=== PATIENT | female | born 1955 | race Two or more races ===

== ENCOUNTER 2016-12-11 13:02 | Inpatient (IN) | payer MEDICARE, OTHER ==
[~2016-12-11] VITALS: Ht 160 cm; Wt 60.8 kg
[2016-12-11 16:40] VITALS: BP 154/101
[2016-12-11] MEDS ORDERED: oxyCONTIN 10mg tab ORAL PRN (18:15)
[2016-12-11] MEDS ORDERED: Prochlorperazine 10mg tab ORAL PRN (18:30)
[2016-12-11 20:00] VITALS: BP 126/72
[2016-12-11] MEDS: NovoLOG Insulin Flexpen SUBQ SCH (21:00)
[2016-12-11] MEDS: Heparin 5000 units/ml inj SUBQ SCH (22:00)
[2016-12-11] MEDS: DuoNeb 0.5-3(2.5)mg/3ml neb HHN SCH (22:13)
[2016-12-11] MEDS ORDERED: oxyCODONE 15mg IR tab ORAL PRN (22:15)
[2016-12-11] MEDS ORDERED: Morphine Sulfate 4mg/ml Inj IVP PRN (22:15)
[2016-12-11] MEDS: Morphine Sulfate 2mg/ml Inj IVP PRN (22:30)
[2016-12-11] MEDS ORDERED: Vancomycin 1 GM in NS 275 ML IVPB ONE (23:00)
[2016-12-12] VITALS (7 sets, daily range): BP systolic 122–140; BP diastolic 56–74
[2016-12-12] MEDS ORDERED: NORCO 10-325 T1 EACH ORAL
[2016-12-12] MEDS ORDERED: Piperacillin/Tazobactam 3.375 GM in D5W 110 ML IVPB SCH ×2
[2016-12-12] MEDS ORDERED: METFORMIN HCL5000 GM MC (00:06)
[2016-12-12] MEDS ORDERED: DEXAMETHASONE4 M1 PO (00:07)
[2016-12-12] MEDS ORDERED: RESTORIL15 MG ORAL (00:08)
[2016-12-12] MEDS ORDERED: OXYCODONE HCL5 MG ORAL (00:08)
[2016-12-12] MEDS ORDERED: OYSTER SHELL 51 EAC1 PO (00:09)
[2016-12-12] MEDS ORDERED: FUROSEMIDE20 M1 ORAL (00:10)
[2016-12-12] MEDS ORDERED: SIMVASTATIN20 MG ORAL (00:10)
[2016-12-12] MEDS ORDERED: LYRICA75 M1 ORAL (00:11)
[2016-12-12] MEDS ORDERED: COMPAZINE10 MG ORAL (00:11)
[2016-12-12] MEDS ORDERED: NEXIUM40 MG ORAL (00:12)
[2016-12-12] MEDS ORDERED: BENADRYL25 MG ORAL (00:13)
[2016-12-12] MEDS ORDERED: MS CONTIN30 MG ORAL (00:13)
[2016-12-12] MEDS: Piperacillin/Tazobactam 3.375 GM in D5W 110 ML IVPB SCH ×3 (02:16→17:30)
[2016-12-12] MEDS: Morphine Sulfate 2mg/ml Inj IVP PRN ×5 (02:25→21:40)
[2016-12-12] MEDS: DuoNeb 0.5-3(2.5)mg/3ml neb HHN SCH ×3 (06:00→23:12)
[2016-12-12] MEDS: Heparin 5000 units/ml inj SUBQ SCH ×3 (06:04→21:42)
[2016-12-12] MEDS: NovoLOG Insulin Flexpen SUBQ SCH ×4 (06:30→21:43)
[2016-12-12 08:20] LABS: BASOPHILS % (AUTO) 0.7 % (0.0-2.0); EOSINOPHILS % (AUTO) 0.9 % (0.0-3.0); LYMPHOCYTES % (AUTO) 12.9 % (20.0-45.0); MEAN CORPUSCULAR HEMOGLOBIN 23.5 PG (27.0-31.0); MEAN CORPUSCULAR HGB CONC 30.8 G/DL (32.0-36.0); MEAN CORPUSCULAR VOLUME 76 FL (80-99); MEAN PLATELET VOLUME 5.5 FL (6.5-10.1); MONOCYTES % (AUTO) 7.9 % (1.0-10.0); NEUTROPHILS % (AUTO) 77.7 % (45.0-75.0); PLATELET COUNT 334 K/UL (150-450); RED BLOOD COUNT 3.74 M/UL (4.20-5.40); RED CELL DISTRIBUTION WIDTH 18.4 % (11.6-14.8); WHITE BLOOD COUNT 7.3 K/UL (4.8-10.8)
[2016-12-12 08:38] LABS: ANION GAP 15 (5-15); CALCIUM 8.5 mg/dL (8.6-10.2); CARBON DIOXIDE 26 mEQ/L (20-30); CHLORIDE 94 mEQ/L (98-107); CREATININE 0.6 mg/dL (0.5-0.9); GLOMERULAR FILTRATION RATE > 60 mL/min (>60); HEMOLYSIS 0; MAGNESIUM 1.6 mg/dL (1.7-2.5); POTASSIUM 3.2 mEQ/L (3.4-4.9); SODIUM 135 mEQ/L (135-145)
[2016-12-12] MEDS: Carvedilol 6.25mg Tab ORAL SCH ×2 (09:00→17:31)
[2016-12-12] MEDS: MS Contin 15mg tab ORAL SCH ×2 (09:00→21:39)
[2016-12-12] MEDS: chlorproMAZINE 10mg tab ORAL SCH ×3 (09:00→18:00)
[2016-12-12] MEDS: Lyrica 50mg cap ORAL SCH ×3 (09:00→18:00)
[2016-12-12] MEDS ORDERED: metFORMIN 500mg tab ORAL SCH (09:00)
--- NOTE | 2016-12-12 10:48 | Diagnostic Imaging Report ---
Indications: Shortness of breath Technique: Portable AP chest Findings: Comparison: None Patchy consolidation medial right lung base. Linear density lateral left lung base. Suggestion of consolidative opacity left retrocardiac region. Background mild bilateral interstitial prominence. Heart size, pulmonary vasculature within normal limits. Suggestion of small right pleural effusion. Tracheostomy tube, left chest wall Port-A-Cath. Bilateral humeral head sclerosis. IMPRESSION: Pulmonary bibasal subsegmental atelectasis and/or pneumonias Nonspecific bilateral interstitial prominence, may relate to technique. Acute or chronic interstitial infiltrates not excludable Bilateral humeral head sclerosis may be metabolic or neoplastic Lines and tubes in place as described
--- NOTE | 2016-12-12 12:29 | Consultation ---
History of Present Illness General Date patient seen: Dec 12, 2016 Chief Complaint: dyspnea Referring physician: Dr. Sarmiento Reason for Consultation: dyspnea Present Illness HPI 61 year old with hx of metastatic breast cancer, s/p trach a few month ago, on ongoing chemotherapy. was taken by paramedics to [facility] for dyspnea. Pt was diagnosed to have pneumonia, he also had brochoscopy which ruled out any mucus plug. After she became stable, she was transferred [place] [facility] [place]. Pt is currently awake, comfortable, with at the bed side. The help with HPI. Allergies: Coded Allergies: SULFAMETHOXAZOLE (Verified Allergy, Unknown, 12/11/16) TRIMETHOPRIM (Verified Allergy, Unknown, 12/11/16) Medication History Scheduled Calcium Carbonate/Vitamin D3 (Oyster Shell 500 Mg + Vit D Tb), 1 EACH PO BID, ( Reported) Dexamethasone (Dexamethasone), 4 MG PO DAILY, (Reported) Esomeprazole Magnesium (Nexium), 40 MG ORAL DAILY, (Reported) Furosemide* (Lasix*), 20 MG ORAL DAILY, (Reported) Metformin Hcl (Metformin Hcl), 1,000 MG MC BID, (Reported) Morphine Sulfate* (Ms Contin*), 15 MG ORAL BID, (Reported) Pregabalin* (Lyrica*), 100 MG ORAL BID, (Reported) Simvastatin (Zocor), 20 MG ORAL BEDTIME, (Reported) Scheduled PRN Diphenhydramine Hcl* (Benadryl*), 50 MG ORAL Q12HR PRN for Itching, (Reported) Hydrocodone Bit/Acetaminophen 10-325* ([place] 10-325*), 1 TAB ORAL Q6H PRN for For Pain, (Reported) Oxycodone Hcl Ir* (Roxicodone Ir*), 15 MG ORAL Q4H PRN for For Pain, (Reported) Prochlorperazine (Compazine*), 10 MG ORAL TID PRN for Nausea & Vomiting, ( Reported) Temazepam* (Restoril*), 15 MG ORAL BEDTIME PRN for Insomnia, (Reported) Patient History Healthcare decision maker N Resuscitation status Full Code Advanced Directive on File Past Medical/Surgical History Past Medical/Surgical History: (1) Diabetes (2) Metastatic adenocarcinoma Review of Systems Respiratory: Reports: cough, shortness of breath Physical Exam Lines, tubes and drains: peripheral, trach, other - Annabel cath HEENT: normocephalic Neck: non-tender, normal alignment Respiratory/Chest: chest wall non-tender, lungs clear Cardiovascular/Chest: normal peripheral pulses, normal rate Abdomen: normal bowel sounds, non tender Genitourinary/Rectal: normal genital exam, heme negative stool Extremities: normal range of motion Last 24 Hour Vital Signs Date Time Temp Pulse Resp B/P Pulse Ox O2 Delivery O2 Flow Rate FiO2 12/12/16 11:23 98.4 87 18 140/74 100 Trach Collar 12/12/16 08:06 98.1 85 18 129/56 97 Trach Collar 35 12/12/16 08:00 83 12/12/16 07:27 99 T-piece 12.0 50 12/12/16 07:27 T-piece 12.0 50 12/12/16 04:03 98.3 90 18 136/72 100 Trach Collar 12/12/16 04:00 88 12/12/16 00:04 98.2 89 19 122/67 98 Trach Collar 10.0 12/12/16 00:00 87 12/11/16 22:18 89 16 100 T-piece 8.0 35 12/11/16 22:16 87 16 99 T-piece 8.0 35 12/11/16 20:00 98.4 85 18 126/72 99 Room Air 12/11/16 20:00 85 12/11/16 19:00 99 T-piece 8.0 35 12/11/16 19:00 T-piece 8.0 35 12/11/16 17:49 10.0 12/11/16 16:40 98.2 107 24 154/101 100 Trach Collar 10.0 35 Intake and Output 12/11/16 12/12/16 19:00 07:00 Output Total 1200 ml Balance -1200 ml Output Urine Total 1200 ml Laboratory Tests Test 12/12/16 07:55 White Blood Count 7.3 K/UL (4.8-10.8) Red Blood Count 3.74 M/UL (4.20-5.40) L Hemoglobin 8.8 G/DL (12.0-16.0) L Hematocrit 28.6 % (37.0-47.0) L Mean Corpuscular Volume 76 FL (80-99) L Mean Corpuscular Hemoglobin 23.5 PG (27.0-31.0) L Mean Corpuscular Hemoglobin Concent 30.8 G/DL (32.0-36.0) L Red Cell Distribution Width 18.4 % (11.6-14.8) H Platelet Count 334 K/UL (150-450) Mean Platelet Volume 5.5 FL (6.5-10.1) L Neutrophils (%) (Auto) 77.7 % (45.0-75.0) H Lymphocytes (%) (Auto) 12.9 % (20.0-45.0) L Monocytes (%) (Auto) 7.9 % (1.0-10.0) Eosinophils (%) (Auto) 0.9 % (0.0-3.0) Basophils (%) (Auto) 0.7 % (0.0-2.0) Sodium Level 135 mEQ/L (135-145) Potassium Level 3.2 mEQ/L (3.4-4.9) L Chloride Level 94 mEQ/L (98-107) L Carbon Dioxide Level 26 mEQ/L (20-30) Anion Gap 15 (5-15) Blood Urea Nitrogen 9 mg/dL (7-23) Creatinine 0.6 mg/dL (0.5-0.9) Estimat Glomerular Filtration Rate > 60 mL/min (>60) Glucose Level 98 mg/dL (74-106) Calcium Level 8.5 mg/dL (8.6-10.2) L Phosphorus Level 2.7 mg/dL (2.5-4.8) Magnesium Level 1.6 mg/dL (1.7-2.5) L Height (Feet): 5 Height (Inches): 3.00 Weight (Pounds): 134 Medications Current Medications Medications (Trade) Dose Ordered Sig/Trung Route PRN Reason Start Time Stop Time Status Last Admin Dose Admin Acetaminophen (Tylenol) 650 mg Q4H PRN ORAL fever 12/11/16 18:00 01/10/17 17:59 Albuterol/ Ipratropium (DuoNeb 0.5-3(2.5)mg/3ml) 3 ml Q4HR PRN HHN Shortness of Breath 12/11/16 18:00 12/16/16 17:59 Albuterol/ Ipratropium (DuoNeb 0.5-3(2.5)mg/3ml) 3 ml Q8HR HHN 12/11/16 22:00 12/16/16 21:59 12/11/16 22:13 Atorvastatin Calcium (Lipitor) 10 mg BEDTIME ORAL 12/11/16 21:30 01/10/17 21:29 Carvedilol (Coreg) 6.25 mg BID ORAL 12/12/16 09:00 01/11/17 08:59 Chlorpromazine (Thorazine) 10 mg BID ORAL 12/12/16 09:00 01/11/17 08:59 Clonidine HCl (Catapres) 0.1 mg Q4H PRN ORAL For High Blood Pressure 12/11/16 18:15 01/10/17 18:14 Dexamethasone (Decadron) 4 mg DAILY ORAL 12/12/16 09:00 01/11/17 08:59 Dextrose (Dextrose 50%) STAT PRN IV Hypoglycemia 12/11/16 18:00 01/10/17 17:59 Diphenhydramine HCl (Benadryl) 50 mg Q12HR PRN ORAL Itching/Pruritis 12/11/16 18:00 01/10/17 17:59 Furosemide (Lasix) 20 mg DAILY ORAL 12/12/16 09:00 01/11/17 08:59 Heparin Sodium (Porcine) (Heparin 5000 units/ml) 5,000 units EVERY 8 HOURS SUBQ 12/11/16 22:00 01/10/17 21:59 12/12/16 06:04 Insulin Aspart (NovoLOG) BEFORE MEALS AND HS SUBQ 12/11/16 21:00 01/10/17 20:59 Levothyroxine Sodium (Synthroid) 112 mcg DAILY@0630 ORAL 12/12/16 06:30 01/11/17 06:29 Morphine Sulfate (MS Contin) 15 mg Q12HR ORAL 12/12/16 09:00 12/19/16 08:59 Morphine Sulfate (Morphine Sulfate) 2 mg Q4H PRN IVP for mild - moderate pain 12/11/16 22:15 12/18/16 22:14 12/12/16 09:02 Morphine Sulfate 4 mg 4 mg Q4H PRN IVP Severe Pain (Pain Scale 7-10) 12/11/16 22:15 12/18/16 22:14 Oxycodone HCl (Roxicodone) 15 mg Q4H PRN ORAL Breakthrough Pain 12/11/16 22:15 12/18/16 22:14 Pantoprazole 40 mg 40 mg DAILY ORAL 12/12/16 09:00 01/11/17 08:59 Piperacillin Sod/ Tazobactam Sod/ Dextrose (Zosyn/D5W 100ml) 110 ml @ 27.5 mls/hr Q8H IVPB 12/12/16 01:00 12/19/16 00:59 12/12/16 08:54 Pregabalin (Lyrica) 100 mg BID ORAL 12/12/16 09:00 01/11/17 08:59 Prochlorperazine (Compazine) 10 mg TID PRN ORAL Nausea & Vomiting 12/11/16 18:30 01/10/17 18:29 Promethazine HCl/ Codeine (Phenergan with Codeine) 5 ml Q4H PRN ORAL For Cough 12/12/16 12:30 01/11/17 12:29 UNV Sumatriptan Succinate (Imitrex) 100 mg DAILY PRN ORAL For Pain 12/11/16 18:30 01/10/17 18:29 Temazepam (Restoril) 15 mg QHS PRN ORAL Insomnia 12/11/16 18:00 12/18/16 17:59 Vancomycin HCl (Vanco rx to dose) 1 ea DAILY PRN MISC Per rx protocol 12/11/16 18:15 01/10/17 18:14 Vancomycin HCl/ Sodium Chloride (Vancomycin/ Sodium Chloride 250ml bag) 275 ml @ 183.708 mls/hr Q12H IVPB 12/12/16 11:00 12/17/16 10:59 Assessment/Plan Problem List: (1) Pneumonia ICD Codes: J18.9 - Pneumonia, unspecified organism SNOMED: 868670018 Qualifiers: (2) Diabetes ICD Codes: E11.9 - Type 2 diabetes mellitus without complications SNOMED: 62503076 Qualifiers: Qualified Codes: E11.9 - Type 2 diabetes mellitus without complications (3) Metastatic adenocarcinoma ICD Codes: C79.9 - Secondary malignant neoplasm of unspecified site SNOMED: 9930512, 038952173 (4) Status post tracheostomy ICD Codes: Z93.0 - Tracheostomy status SNOMED: 78440178, 127061441 Assessment/Plan check sputum cultures respiratory treatment trach care f/u wbc continue antibiotics chest pt sliding scale KAYLA ESPINOZA Dec 12, 2016 12:29
[2016-12-12] MEDS ORDERED: Promethazine/Codeine 5ml UD ORAL PRN (12:30)
[2016-12-12] MEDS: SUMAtriptan 100mg tab ORAL PRN ×2 (12:45→21:40)
[2016-12-12] MEDS: Vancomycin 750 MG in NS 275 ML IVPB SCH ×2 (13:37→22:27)
[2016-12-12] MEDS: KCl 10% 40mEq/30ml liquid ORAL SCH ×2 (13:58→17:42)
[2016-12-12 15:30] LABS: INR 1.2 (0.9-1.1); PROTHROMBIN TIME 11.8 SEC (9.30-11.50)
[2016-12-12 17:50] LABS: RETICULOCYTE COUNT 1.3 % (0.0-2.0)
[2016-12-12 18:20] LABS: BAND NEUTROPHILS % (MANUAL) 0 % (0-8); BASOPHILS % (MANUAL) 0 % (0-2); EOSINOPHILS % (MANUAL) 0 % (0-3); LYMPHOCYTES % (MANUAL) 6 % (20-45); NEUTROPHILS % (MANUAL) 86 % (45-75); PLATELET ESTIMATE ADEQUATE; PLATELET MORPHOLOGY NORMAL; TOTAL CELLS COUNTED 100
[2016-12-12 18:21] LABS: ANISOCYTOSIS 2+; MICROCYTES 1+; POLYCHROMASIA 1+
[2016-12-12 18:22] LABS: PATH BLOOD SMEAR/OMC SENT TO PATHOLOGIST
--- NOTE | 2016-12-12 18:52 | History & Physical ---
History and Physical History & Physicial Dictated for Int Med-Dr Sarmiento no. [id number]. PRABHU FINNEY Dec 12, 2016 18:52
--- NOTE | 2016-12-12 22:07 | History and Physical Report ---
DATE OF ADMISSION: 12/11/[address] Sarmiento. CHIEF COMPLAINT: The patient is a 61-year-old female with history of metastatic breast cancer and previous tracheostomy presents with complaint of shortness of breath. HISTORY OF PRESENT ILLNESS: The patient still is unable to give much of the history and physical. Much of the history and physical is obtained from the patient's chart and the patient's . The patient began to experience shortness of breath on 12/11/2016. The patient presented to [facility] emergency room. The patient had a bronchoscopy performed at [facility]. Bronchoscopy failed to reveal any mucous plugs. The patient was transferred to [facility] secondary to insurance reasons. The patient is admitted for shortness of breath to rule out aspiration pneumonia. PAST MEDICAL HISTORY: Significant for, 1. Metastatic breast cancer. 2. Hypertension. 3. Hypothyroidism. CURRENT MEDICATIONS: 1. Atenolol 100 mg one tablet p.o. daily. 2. Levoxyl 100 mcg one tablet p.o. daily. 3. Imitrex 100 mg p.r.n. headache. 4. Tamoxifen daily. ALLERGIES: To Bactrim. SOCIAL HISTORY: The patient is and is disabled. The patient denies tobacco or alcohol use. REVIEW OF SYSTEMS: Constitutional: The patient denies weight loss or weight gain. The patient denies fevers or chills. The patient denies headache. Cardiovascular: The patient denies palpitations or chest pain. Chest: The patient complains of shortness of breath as above. The patient denies wheezes. Abdomen: The patient denies nausea, vomiting, diarrhea, or constipation. Genitourinary: The patient denies dysuria or increased frequency of urination. Neuromuscular: The patient denies seizures or generalized weakness. PHYSICAL EXAMINATION: VITAL SIGNS: Temperature 97.9 degrees, respirations 20, pulse 89, and blood pressure 131/61. GENERAL: The patient is well-developed and well-nourished female, in no apparent distress. HEENT: Eyes, pupils are equal and responsive to light and accommodation. Extraocular movements are intact. NECK: Supple without lymphadenopathy. CHEST: Trach collar in place. Few diffuse rales in bilateral bases with few expiratory wheezes. Otherwise, clear to auscultation without wheezing or rales. CARDIOVASCULAR: S1, S2. No murmurs, rubs, or gallops. ABDOMEN: Soft, nontender, and nondistended. Positive bowel sounds. No evidence of hepatosplenomegaly. Currently, no rebound or guarding. EXTREMITIES: Negative for clubbing, cyanosis, or edema. RECTAL: Refused. GENITAL: Refused. NEUROLOGIC: Cranial nerves II through XII are grossly intact without focal deficits. Motor strength is 5/5 bilaterally. Deep tendon reflexes are 2+ plantar. LABORATORY STUDIES: WBC 12.1, hemoglobin 10.7, hematocrit 33.8, and platelets 623,000. Sodium 128, potassium 4.2, chloride 94, CO2 24, BUN 15, creatinine 0.81, and glucose 156. Troponin 0.02. Chest x-ray show bilateral bibasilar infiltrates right greater than left. ASSESSMENT: This is a 61-year-old female, 1. Aspiration pneumonia. 2. Trach collar in place. 3. Shortness of breath. 4. Breast cancer with metastases. 5. Hypertension. 6. Hypothyroidism. TREATMENT: 1. Tracheostomy/shortness of breath/aspiration pneumonia. Pulmonary consultation was obtained with Dr. Jesus Hernandez. The patient has been started empirically on vancomycin. The patient has also been started empirically on Zosyn. The sputum culture is pending. We will follow recommendations of Pulmonary for recommendations regarding the tracheostomy tube. 2. Breast cancer with metastases. The patient is currently undergoing chemotherapy. 3. Hypertension. Continue metoprolol as above. 4. Hypothyroidism. Continue Synthroid as above. Brayan Rob M.D. DR: Crow JOB#: [id number] CC:
[2016-12-13] MEDS: Piperacillin/Tazobactam 3.375 GM in D5W 110 ML IVPB SCH ×3 (01:00→17:31)
[2016-12-13] MEDS: DuoNeb 0.5-3(2.5)mg/3ml neb HHN PRN (03:06)
[2016-12-13 03:59] VITALS: BP 143/68
[2016-12-13] MEDS: Heparin 5000 units/ml inj SUBQ SCH (06:40)
[2016-12-13] MEDS: NovoLOG Insulin Flexpen SUBQ SCH ×4 (06:41→21:45)
[2016-12-13 07:50] LABS: BASOPHILS % (AUTO) 0.9 % (0.0-2.0); EOSINOPHILS % (AUTO) 3.2 % (0.0-3.0); LYMPHOCYTES % (AUTO) 14.5 % (20.0-45.0); MEAN CORPUSCULAR HEMOGLOBIN 23.9 PG (27.0-31.0); MEAN CORPUSCULAR HGB CONC 31.2 G/DL (32.0-36.0); MEAN CORPUSCULAR VOLUME 77 FL (80-99); MEAN PLATELET VOLUME 5.7 FL (6.5-10.1); MONOCYTES % (AUTO) 10.4 % (1.0-10.0); NEUTROPHILS % (AUTO) 70.9 % (45.0-75.0); PLATELET COUNT 337 K/UL (150-450); RED CELL DISTRIBUTION WIDTH 18.8 % (11.6-14.8); WHITE BLOOD COUNT 6.4 K/UL (4.8-10.8)
[2016-12-13] MEDS: DuoNeb 0.5-3(2.5)mg/3ml neb HHN SCH ×3 (07:58→22:43)
[2016-12-13 08:20] LABS: ANION GAP 12 (5-15); CALCIUM 8.3 mg/dL (8.6-10.2); CARBON DIOXIDE 27 mEQ/L (20-30); CHLORIDE 97 mEQ/L (98-107); CREATININE 0.6 mg/dL (0.5-0.9); GLOMERULAR FILTRATION RATE > 60 mL/min (>60); HEMOLYSIS 1; POTASSIUM 3.8 mEQ/L (3.4-4.9); SODIUM 136 mEQ/L (135-145)
[2016-12-13] MEDS: Carvedilol 6.25mg Tab ORAL SCH ×2 (08:25→18:17)
[2016-12-13] MEDS: MS Contin 15mg tab ORAL SCH ×2 (08:26→21:38)
[2016-12-13] MEDS: Lyrica 50mg cap ORAL SCH ×2 (08:27→18:00)
[2016-12-13] MEDS: chlorproMAZINE 10mg tab ORAL SCH ×2 (08:28→18:17)
[2016-12-13 08:33] VITALS: BP 138/63
[2016-12-13 09:55] LABS: OTHERS PATHOLOGIST COMMENT
[2016-12-13] MEDS: Vancomycin 750 MG in NS 275 ML IVPB SCH (11:00)
--- NOTE | 2016-12-13 11:19 | Pulmonology Progress Note ---
Assessment/Plan Problems: (1) Pneumonia (2) Diabetes (3) Metastatic adenocarcinoma (4) Anemia (5) Iron deficiency (6) Status post tracheostomy Assessment/Plan ROXY keating continue vanco and flower sputum was sent, results pending sliding scale, insulin coverage med/surg Iv venofer check stool for OB Subjective ROS Limited/Unobtainable: No Interval Events: less short of breath, no new complains Constitutional: Reports: no symptoms HEENT: Repors: no symptoms Respiratory: Reports: no symptoms Cardiovascular: Reports: no symptoms Allergies: Coded Allergies: ONDANSETRON (Verified Allergy, Unknown, 12/12/16) SULFAMETHOXAZOLE (Verified Allergy, Unknown, 12/11/16) TRIMETHOPRIM (Verified Allergy, Unknown, 12/11/16) Objective Last 24 Hour Vital Signs Date Time Temp Pulse Resp B/P Pulse Ox O2 Delivery O2 Flow Rate FiO2 12/13/16 08:33 97.9 81 18 138/63 96 Trach Collar 12/13/16 08:25 81 138/63 12/13/16 08:00 81 12/13/16 08:00 10.0 35 12/13/16 07:55 85 16 100 T-piece 8.0 35 12/13/16 07:50 Trach Collar 8.0 35 12/13/16 07:45 82 16 99 T-piece 8.0 35 12/13/16 07:44 99 Trach Collar 8.0 35 12/13/16 04:58 86 12/13/16 04:00 10.0 35 12/13/16 03:59 97.9 84 20 143/68 100 Trach Collar 10.0 12/13/16 03:21 77 20 99 Trach Collar 10.0 35 12/13/16 03:07 30 12/13/16 03:07 88 18 99 Trach Collar 10.0 30 12/13/16 00:00 30 12/12/16 23:38 90 12/12/16 23:10 98.1 89 20 134/56 99 Trach Collar 10.0 12/12/16 20:00 91 12/12/16 20:00 8.0 35 12/12/16 20:00 99.9 91 20 131/63 96 Trach Collar 10.0 12/12/16 19:30 Trach Collar 10.0 35 12/12/16 19:30 98 Trach Collar 10.0 35 12/12/16 17:31 89 131/61 12/12/16 16:00 85 12/12/16 16:00 97.9 89 20 131/61 99 Trach Collar 12/12/16 16:00 8.0 35 12/12/16 14:10 85 16 100 T-piece 12.0 50 12/12/16 14:01 82 16 99 T-piece 12.0 50 12/12/16 12:00 91 12/12/16 11:23 98.4 87 18 140/74 100 Trach Collar Intake and Output 12/12/16 12/13/16 19:00 07:00 Intake Total 1142.416 ml 827.500 ml Output Total 450 ml 600 ml Balance 692.416 ml 227.500 ml Intake Oral 510 ml 360 ml IV Total 632.416 ml 467.500 ml Output Urine Total 450 ml 600 ml General Appearance: WD/WN HEENT: normocephalic, atraumatic Respiratory/Chest: chest wall non-tender, accessory muscle use, crackles/rales Cardiovascular: normal peripheral pulses, normal rate Abdomen: normal bowel sounds, no organomegaly Extremities: no cyanosis Skin: no rash 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 Microbiology Date/Time Source Procedure Growth Status 12/12/16 15:03 Sputum Gram Stain - Final Resulted 12/12/16 15:03 Sputum Sputum Culture Pending Resulted 12/11/16 22:10 Nasal Nares MRSA Culture - Final Staphylococcus Aureus - Mrsa Complete Laboratory Tests 12/12/16 14:55: Erythrocyte Sedimentation Rate 101H, Reticulocyte Count 1.3, Prothrombin Time 11.8H, Prothromb Time International Ratio 1.2H, Activated Partial Thromboplast Time 38H, Iron Level 24L, Total Iron Binding Capacity 243L, Percent Iron Saturation 10L, Unsaturated Iron Binding 219, Lactate Dehydrogenase 205, Carcinoembryonic Antigen 8.5H, Vitamin B12 Level 258, Folate 11.9 12/13/16 07:20: White Blood Count 6.4, Red Blood Count 3.40L, Hemoglobin 8.1L, Hematocrit 26.1L , Mean Corpuscular Volume 77L, Mean Corpuscular Hemoglobin 23.9L, Mean Corpuscular Hemoglobin Concent 31.2L, Red Cell Distribution Width 18.8H, Platelet Count 337, Mean Platelet Volume 5.7L, Neutrophils (%) (Auto) 70.9, Lymphocytes (%) (Auto) 14.5L, Monocytes (%) (Auto) 10.4H, Eosinophils (%) (Auto ) 3.2H, Basophils (%) (Auto) 0.9, Sodium Level 136, Potassium Level 3.8, Chloride Level 97L, Carbon Dioxide Level 27, Anion Gap 12, Blood Urea Nitrogen 10, Creatinine 0.6, Estimat Glomerular Filtration Rate > 60, Glucose Level 105, Calcium Level 8.3L 12/13/16 10:05: Vancomycin Level Trough 9.4 Current Medications Medications (Trade) Dose Ordered Sig/Trung Route PRN Reason Start Time Stop Time Status Last Admin Dose Admin Acetaminophen (Tylenol) 650 mg Q4H PRN ORAL fever 12/11/16 18:00 01/10/17 17:59 Albuterol/ Ipratropium (DuoNeb 0.5-3(2.5)mg/3ml) 3 ml Q4HR PRN HHN Shortness of Breath 12/11/16 18:00 12/16/16 17:59 12/13/16 03:06 Albuterol/ Ipratropium (DuoNeb 0.5-3(2.5)mg/3ml) 3 ml Q8HR HHN 12/11/16 22:00 12/16/16 21:59 12/13/16 07:58 Atorvastatin Calcium (Lipitor) 10 mg BEDTIME ORAL 12/11/16 21:30 01/10/17 21:29 12/12/16 21:39 Carvedilol (Coreg) 6.25 mg BID ORAL 12/12/16 09:00 01/11/17 08:59 12/13/16 08:25 Chlorpromazine (Thorazine) 10 mg BID ORAL 12/12/16 09:00 01/11/17 08:59 Clonidine HCl (Catapres) 0.1 mg Q4H PRN ORAL For High Blood Pressure 12/11/16 18:15 01/10/17 18:14 Dexamethasone (Decadron) 4 mg DAILY ORAL 12/12/16 09:00 01/11/17 08:59 12/13/16 08:27 Dextrose (Dextrose 50%) STAT PRN IV Hypoglycemia 12/11/16 18:00 01/10/17 17:59 Diphenhydramine HCl (Benadryl) 50 mg Q12HR PRN ORAL Itching/Pruritis 12/11/16 18:00 01/10/17 17:59 Furosemide (Lasix) 20 mg DAILY ORAL 12/12/16 09:00 01/11/17 08:59 12/13/16 08:24 Heparin Sodium (Porcine) (Heparin 5000 units/ml) 5,000 units EVERY 8 HOURS SUBQ 12/11/16 22:00 01/10/17 21:59 12/13/16 06:40 Insulin Aspart (NovoLOG) BEFORE MEALS AND HS SUBQ 12/11/16 21:00 01/10/17 20:59 12/13/16 06:41 Levothyroxine Sodium (Synthroid) 112 mcg DAILY@0630 ORAL 12/12/16 06:30 01/11/17 06:29 12/13/16 06:39 Morphine Sulfate (MS Contin) 15 mg Q12HR ORAL 12/12/16 09:00 12/19/16 08:59 12/13/16 08:26 Morphine Sulfate (Morphine Sulfate) 2 mg Q4H PRN IVP for mild - moderate pain 12/11/16 22:15 12/18/16 22:14 12/12/16 21:40 Morphine Sulfate 4 mg 4 mg Q4H PRN IVP Severe Pain (Pain Scale 7-10) 12/11/16 22:15 12/18/16 22:14 Oxycodone HCl (Roxicodone) 15 mg Q4H PRN ORAL Breakthrough Pain 12/11/16 22:15 12/18/16 22:14 Pantoprazole (Protonix) 40 mg DAILY ORAL 12/12/16 09:00 01/11/17 08:59 12/13/16 08:27 Piperacillin Sod/ Tazobactam Sod/ Dextrose (Zosyn/D5W 100ml) 110 ml @ 27.5 mls/hr Q8H IVPB 12/12/16 01:00 12/19/16 00:59 12/13/16 08:21 Pregabalin (Lyrica) 100 mg BID ORAL 12/12/16 09:00 01/11/17 08:59 Prochlorperazine (Compazine) 10 mg TID PRN ORAL Nausea & Vomiting 12/11/16 18:30 01/10/17 18:29 Promethazine HCl/ Codeine (Phenergan with Codeine) 5 ml Q4H PRN ORAL For Cough 12/12/16 12:30 01/11/17 12:29 Sumatriptan Succinate (Imitrex) 100 mg DAILY PRN ORAL For Pain 12/11/16 18:30 01/10/17 18:29 12/12/16 21:40 Temazepam (Restoril) 15 mg QHS PRN ORAL Insomnia 12/11/16 18:00 12/18/16 17:59 12/12/16 22:22 Vancomycin HCl (Vanco rx to dose) 1 ea DAILY PRN MISC Per rx protocol 12/11/16 18:15 01/10/17 18:14 KAYLA ESPINOZA Dec 13, 2016 11:19
[2016-12-13 11:53] VITALS: BP 136/71
[2016-12-13] MEDS: Vancomycin 1gm in D5W 250ml IVPB SCH (12:40)
[2016-12-13] MEDS: SUMAtriptan 100mg tab ORAL PRN (15:04)
[2016-12-13 16:00] VITALS: BP 158/74
--- NOTE | 2016-12-13 19:36 | Internal Med Progress Note ---
Subjective Date of Service: Dec 13, 2016 Physician Name LianePrabhu Attending Physician Ranjeet Sarmiento MD Current Medications Medications (Trade) Dose Ordered Sig/Trung Route PRN Reason Start Time Stop Time Status Last Admin Dose Admin Acetaminophen (Tylenol) 650 mg Q4H PRN ORAL fever 12/11/16 18:00 01/10/17 17:59 Albuterol/ Ipratropium (DuoNeb 0.5-3(2.5)mg/3ml) 3 ml Q4HR PRN HHN Shortness of Breath 12/11/16 18:00 12/16/16 17:59 12/13/16 03:06 Albuterol/ Ipratropium (DuoNeb 0.5-3(2.5)mg/3ml) 3 ml Q8HR HHN 12/11/16 22:00 12/16/16 21:59 12/13/16 15:23 Atorvastatin Calcium (Lipitor) 10 mg BEDTIME ORAL 12/11/16 21:30 01/10/17 21:29 12/12/16 21:39 Carvedilol (Coreg) 6.25 mg BID ORAL 12/12/16 09:00 01/11/17 08:59 12/13/16 18:17 Chlorpromazine (Thorazine) 10 mg BID ORAL 12/12/16 09:00 01/11/17 08:59 12/13/16 18:17 Clonidine HCl (Catapres) 0.1 mg Q4H PRN ORAL For High Blood Pressure 12/11/16 18:15 01/10/17 18:14 Dexamethasone (Decadron) 4 mg DAILY ORAL 12/12/16 09:00 01/11/17 08:59 12/13/16 08:27 Dextrose (Dextrose 50%) STAT PRN IV Hypoglycemia 12/11/16 18:00 01/10/17 17:59 Diphenhydramine HCl (Benadryl) 50 mg Q12HR PRN ORAL Itching/Pruritis 12/11/16 18:00 01/10/17 17:59 Furosemide (Lasix) 20 mg DAILY ORAL 12/12/16 09:00 01/11/17 08:59 12/13/16 08:24 Insulin Aspart (NovoLOG) BEFORE MEALS AND HS SUBQ 12/11/16 21:00 01/10/17 20:59 12/13/16 17:31 Iron Sucrose/ Sodium Chloride (Venofer/Sodium Chloride) 115 ml @ 460 mls/hr BEDTIME IVPB 12/13/16 21:00 12/17/16 21:14 Levothyroxine Sodium (Synthroid) 112 mcg DAILY@0630 ORAL 12/12/16 06:30 01/11/17 06:29 12/13/16 06:39 Morphine Sulfate (MS Contin) 15 mg Q12HR ORAL 12/12/16 09:00 12/19/16 08:59 12/13/16 08:26 Morphine Sulfate (Morphine Sulfate) 2 mg Q4H PRN IVP for mild - moderate pain 12/11/16 22:15 12/18/16 22:14 12/12/16 21:40 Morphine Sulfate 4 mg 4 mg Q4H PRN IVP Severe Pain (Pain Scale 7-10) 12/11/16 22:15 12/18/16 22:14 Oxycodone HCl (Roxicodone) 15 mg Q4H PRN ORAL Breakthrough Pain 12/11/16 22:15 12/18/16 22:14 Pantoprazole (Protonix) 40 mg DAILY ORAL 12/12/16 09:00 01/11/17 08:59 12/13/16 08:27 Piperacillin Sod/ Tazobactam Sod/ Dextrose (Zosyn/D5W 100ml) 110 ml @ 27.5 mls/hr Q8H IVPB 12/12/16 01:00 12/19/16 00:59 12/13/16 17:31 Pregabalin (Lyrica) 100 mg BID ORAL 12/12/16 09:00 01/11/17 08:59 Prochlorperazine (Compazine) 10 mg TID PRN ORAL Nausea & Vomiting 12/11/16 18:30 01/10/17 18:29 Promethazine HCl/ Codeine 5 ml 5 ml Q4H PRN ORAL For Cough 12/12/16 12:30 01/11/17 12:29 Sumatriptan Succinate (Imitrex) 100 mg DAILY PRN ORAL For Pain 12/11/16 18:30 01/10/17 18:29 12/13/16 15:04 Temazepam (Restoril) 15 mg QHS PRN ORAL Insomnia 12/11/16 18:00 12/18/16 17:59 12/12/16 22:22 Vancomycin HCl (Vanco rx to dose) 1 ea DAILY PRN MISC Per rx protocol 12/11/16 18:15 01/10/17 18:14 Vancomycin HCl 1 gm/Dextrose 275 ml @ 183.708 mls/hr Q12H IVPB 12/13/16 12:00 12/18/16 11:59 12/13/16 12:40 Allergies: Coded Allergies: ONDANSETRON (Verified Allergy, Unknown, 12/12/16) SULFAMETHOXAZOLE (Verified Allergy, Unknown, 12/11/16) TRIMETHOPRIM (Verified Allergy, Unknown, 12/11/16) ROS Limited/Unobtainable: Yes Subjective 61 YO F admitted with shortness of breath. Cover for Int Med-Dr Sarmiento. Objective Last Vital Signs Date Time Temp Pulse Resp B/P Pulse Ox O2 Delivery O2 Flow Rate FiO2 12/13/16 18:17 83 158/74 12/13/16 16:00 97.9 18 100 Room Air 12/13/16 15:30 8.0 35 General Appearance: WD/WN, no apparent distress, alert EENT: PERRL/EOMI, normal ENT inspection, other - trach Neck: non-tender, normal alignment, supple, other - trach Cardiovascular: normal peripheral pulses, normal rate, regular rhythm, no gallop/murmur, no JVD Respiratory/Chest: chest wall non-tender, crackles/rales, rhonchi - bilaterally , expiratory wheezing Abdomen: normal bowel sounds, non tender, soft, no organomegaly, no mass Extremities: normal range of motion Neurologic: instructor physical II-XII grossly normal, no motor/sensory deficits Skin: normal pigmentation, warm/dry Laboratory Tests Test 12/13/16 07:20 12/13/16 10:05 White Blood Count 6.4 K/UL (4.8-10.8) Red Blood Count 3.40 M/UL (4.20-5.40) L Hemoglobin 8.1 G/DL (12.0-16.0) L Hematocrit 26.1 % (37.0-47.0) L Mean Corpuscular Volume 77 FL (80-99) L Mean Corpuscular Hemoglobin 23.9 PG (27.0-31.0) L Mean Corpuscular Hemoglobin Concent 31.2 G/DL (32.0-36.0) L Red Cell Distribution Width 18.8 % (11.6-14.8) H Platelet Count 337 K/UL (150-450) Mean Platelet Volume 5.7 FL (6.5-10.1) L Neutrophils (%) (Auto) 70.9 % (45.0-75.0) Lymphocytes (%) (Auto) 14.5 % (20.0-45.0) L Monocytes (%) (Auto) 10.4 % (1.0-10.0) H Eosinophils (%) (Auto) 3.2 % (0.0-3.0) H Basophils (%) (Auto) 0.9 % (0.0-2.0) Sodium Level 136 mEQ/L (135-145) Potassium Level 3.8 mEQ/L (3.4-4.9) Chloride Level 97 mEQ/L (98-107) L Carbon Dioxide Level 27 mEQ/L (20-30) Anion Gap 12 (5-15) Blood Urea Nitrogen 10 mg/dL (7-23) Creatinine 0.6 mg/dL (0.5-0.9) Estimat Glomerular Filtration Rate > 60 mL/min (>60) Glucose Level 105 mg/dL (74-106) Calcium Level 8.3 mg/dL (8.6-10.2) L Vancomycin Level Trough 9.4 ug/mL (5.0-12.0) Microbiology Date/Time Source Procedure Growth Status 12/12/16 15:03 Sputum Gram Stain - Final Resulted 12/12/16 15:03 Sputum Sputum Culture Pending Resulted 12/11/16 22:10 Nasal Nares MRSA Culture - Final Staphylococcus Aureus - Mrsa Complete Intake and Output 12/12/16 12/13/16 19:00 07:00 Intake Total 1142.416 ml 827.500 ml Output Total 450 ml 600 ml Balance 692.416 ml 227.500 ml Intake Oral 510 ml 360 ml IV Total 632.416 ml 467.500 ml Output Urine Total 450 ml 600 ml Assessment/Plan Problem List: (1) HTN (hypertension) Assessment & Plan: Cont coreg (2) Hypothyroidism Assessment & Plan: Cont levoxyl (3) Cancer of breast (4) Pneumonia Assessment & Plan: See pulmonary note. Cont vanco and zosyn (5) Shortness of breath (6) Metastatic adenocarcinoma (7) Tracheostomy in place (8) Diabetes Assessment & Plan: cont novolog sliding scale. Status: not improved PRABHU FINNEY Dec 13, 2016 19:36
[2016-12-13 20:00] VITALS: BP 139/69
[2016-12-13] MEDS ORDERED: Iron Sucrose 100 MG in NS 55 ML IVPB SCH (21:00)
[2016-12-13] MEDS: Iron Sucrose 100 MG in NS 110 ML IVPB SCH (21:39)
[2016-12-14 00:05] VITALS: BP 128/74
[2016-12-14] MEDS: Vancomycin 1gm in D5W 250ml IVPB SCH ×2 (00:45→13:53)
[2016-12-14] MEDS: Piperacillin/Tazobactam 3.375 GM in D5W 110 ML IVPB SCH ×3 (01:34→18:12)
[2016-12-14] MEDS: DuoNeb 0.5-3(2.5)mg/3ml neb HHN PRN (03:46)
[2016-12-14 04:05] VITALS: BP 129/72
[2016-12-14] MEDS: NovoLOG Insulin Flexpen SUBQ SCH ×4 (06:40→22:05)
[2016-12-14 08:30] LABS: BASOPHILS % (AUTO) 0.4 % (0.0-2.0); EOSINOPHILS % (AUTO) 0.1 % (0.0-3.0); LYMPHOCYTES % (AUTO) 9.9 % (20.0-45.0); MEAN CORPUSCULAR HEMOGLOBIN 23.8 PG (27.0-31.0); MEAN CORPUSCULAR HGB CONC 31.1 G/DL (32.0-36.0); MEAN CORPUSCULAR VOLUME 76 FL (80-99); MEAN PLATELET VOLUME 6.3 FL (6.5-10.1); NEUTROPHILS % (AUTO) 80.6 % (45.0-75.0); PLATELET COUNT 348 K/UL (150-450); RED BLOOD COUNT 3.46 M/UL (4.20-5.40); RED CELL DISTRIBUTION WIDTH 18.6 % (11.6-14.8); WHITE BLOOD COUNT 7.1 K/UL (4.8-10.8)
[2016-12-14 08:33] LABS: INR 1.1 (0.9-1.1); PROTHROMBIN TIME 11.4 SEC (9.30-11.50)
[2016-12-14 08:39] VITALS: BP 142/72
[2016-12-14 08:41] LABS: ALANINE AMINOTRANSFERASE 14 U/L (3-33); ALBUMIN/GLOBULIN RATIO 1.1 (1.0-2.7); ANION GAP 13 (5-15); ASPARTATE AMINO TRANSFERASE 33 U/L (5-40); CALCIUM 8.3 mg/dL (8.6-10.2); CARBON DIOXIDE 28 mEQ/L (20-30); CHLORIDE 96 mEQ/L (98-107); CREATININE 0.5 mg/dL (0.5-0.9); GLOMERULAR FILTRATION RATE > 60 mL/min (>60); HEMOLYSIS 2; MAGNESIUM 1.9 mg/dL (1.7-2.5); PHOSPHORUS 2.7 mg/dL (2.5-4.8); POTASSIUM 3.4 mEQ/L (3.4-4.9); SODIUM 137 mEQ/L (135-145); TOTAL PROTEIN 6.1 g/dL (6.6-8.7)
[2016-12-14] MEDS: chlorproMAZINE 10mg tab ORAL SCH ×3 (09:00→18:13)
[2016-12-14] MEDS: DuoNeb 0.5-3(2.5)mg/3ml neb HHN SCH ×3 (09:00→22:56)
[2016-12-14] MEDS: Lyrica 50mg cap ORAL SCH ×3 (09:00→18:58)
[2016-12-14] MEDS: SUMAtriptan 100mg tab ORAL PRN ×2 (09:03→18:56)
[2016-12-14] MEDS: Carvedilol 6.25mg Tab ORAL SCH ×2 (09:04→18:13)
[2016-12-14] MEDS: MS Contin 15mg tab ORAL SCH ×2 (09:05→21:54)
--- NOTE | 2016-12-14 10:32 | Internal Med Progress Note ---
Subjective Date of Service: Dec 14, 2016 Physician Name Prabhu Finney Attending Physician Ranjeet Sarmiento MD Current Medications Medications (Trade) Dose Ordered Sig/Trung Route PRN Reason Start Time Stop Time Status Last Admin Dose Admin Acetaminophen (Tylenol) 650 mg Q4H PRN ORAL fever 12/11/16 18:00 01/10/17 17:59 Albuterol/ Ipratropium (DuoNeb 0.5-3(2.5)mg/3ml) 3 ml Q4HR PRN HHN Shortness of Breath 12/11/16 18:00 12/16/16 17:59 12/14/16 03:46 Albuterol/ Ipratropium (DuoNeb 0.5-3(2.5)mg/3ml) 3 ml Q8HR HHN 12/11/16 22:00 12/16/16 21:59 12/14/16 09:00 Atorvastatin Calcium (Lipitor) 10 mg BEDTIME ORAL 12/11/16 21:30 01/10/17 21:29 12/13/16 21:35 Carvedilol (Coreg) 6.25 mg BID ORAL 12/12/16 09:00 01/11/17 08:59 12/14/16 09:04 Chlorpromazine (Thorazine) 10 mg BID ORAL 12/12/16 09:00 01/11/17 08:59 12/13/16 18:17 Clonidine HCl (Catapres) 0.1 mg Q4H PRN ORAL For High Blood Pressure 12/11/16 18:15 01/10/17 18:14 Dexamethasone (Decadron) 4 mg DAILY ORAL 12/12/16 09:00 01/11/17 08:59 12/14/16 09:05 Dextrose (Dextrose 50%) STAT PRN IV Hypoglycemia 12/11/16 18:00 01/10/17 17:59 Diphenhydramine HCl (Benadryl) 50 mg Q12HR PRN ORAL Itching/Pruritis 12/11/16 18:00 01/10/17 17:59 Furosemide (Lasix) 20 mg DAILY ORAL 12/12/16 09:00 01/11/17 08:59 12/14/16 09:04 Insulin Aspart (NovoLOG) BEFORE MEALS AND HS SUBQ 12/11/16 21:00 01/10/17 20:59 12/14/16 06:40 Iron Sucrose/ Sodium Chloride (Venofer/Sodium Chloride) 115 ml @ 460 mls/hr BEDTIME IVPB 12/13/16 21:00 12/17/16 21:14 12/13/16 21:39 Levothyroxine Sodium (Synthroid) 112 mcg DAILY@0630 ORAL 12/12/16 06:30 01/11/17 06:29 12/14/16 06:38 Morphine Sulfate (MS Contin) 15 mg Q12HR ORAL 12/12/16 09:00 12/19/16 08:59 12/14/16 09:05 Morphine Sulfate (Morphine Sulfate) 2 mg Q4H PRN IVP for mild - moderate pain 12/11/16 22:15 12/18/16 22:14 12/12/16 21:40 Morphine Sulfate 4 mg 4 mg Q4H PRN IVP Severe Pain (Pain Scale 7-10) 12/11/16 22:15 12/18/16 22:14 Oxycodone HCl (Roxicodone) 15 mg Q4H PRN ORAL Breakthrough Pain 12/11/16 22:15 12/18/16 22:14 Pantoprazole (Protonix) 40 mg DAILY ORAL 12/12/16 09:00 01/11/17 08:59 12/14/16 09:05 Piperacillin Sod/ Tazobactam Sod/ Dextrose (Zosyn/D5W 100ml) 110 ml @ 27.5 mls/hr Q8H IVPB 12/12/16 01:00 12/19/16 00:59 12/14/16 09:05 Pregabalin (Lyrica) 100 mg BID ORAL 12/12/16 09:00 01/11/17 08:59 Prochlorperazine (Compazine) 10 mg TID PRN ORAL Nausea & Vomiting 12/11/16 18:30 01/10/17 18:29 Promethazine HCl/ Codeine 5 ml 5 ml Q4H PRN ORAL For Cough 12/12/16 12:30 01/11/17 12:29 Sumatriptan Succinate (Imitrex) 100 mg DAILY PRN ORAL For Pain 12/11/16 18:30 01/10/17 18:29 12/14/16 09:03 Temazepam (Restoril) 15 mg QHS PRN ORAL Insomnia 12/11/16 18:00 12/18/16 17:59 12/12/16 22:22 Vancomycin HCl (Vanco rx to dose) 1 ea DAILY PRN MISC Per rx protocol 12/11/16 18:15 01/10/17 18:14 Vancomycin HCl 1 gm/Dextrose 275 ml @ 183.708 mls/hr Q12H IVPB 12/13/16 12:00 12/18/16 11:59 12/14/16 00:45 Allergies: Coded Allergies: ONDANSETRON (Verified Allergy, Unknown, 12/12/16) SULFAMETHOXAZOLE (Verified Allergy, Unknown, 12/11/16) TRIMETHOPRIM (Verified Allergy, Unknown, 12/11/16) ROS Limited/Unobtainable: No Constitutional: Reports: no symptoms HEENT: Reports: no symptoms Cardiovascular: Reports: no symptoms Respiratory: Reports: shortness of breath Gastrointestinal/Abdominal: Reports: no symptoms Neurologic/Psychiatric: Reports: no symptoms Subjective 61 YO F admitted with shortness of breath. Cover for Int Med-Dr Sarmiento. See speech therapy note concerning need for Trach change. Patient C/O shortness of breath when goes to bathroom - Needs portable Oxygen Objective Last Vital Signs Date Time Temp Pulse Resp B/P Pulse Ox O2 Delivery O2 Flow Rate FiO2 12/14/16 09:04 96 142/72 12/14/16 08:39 97.9 18 97 Trach Collar 12/14/16 07:40 8.0 30 General Appearance: WD/WN, no apparent distress, alert EENT: PERRL/EOMI, normal ENT inspection, TMs normal Neck: non-tender, normal alignment, supple, other - trach Cardiovascular: normal peripheral pulses, normal rate, regular rhythm, no gallop/murmur, no JVD Respiratory/Chest: chest wall non-tender, crackles/rales, rhonchi - bilaterally , expiratory wheezing, other - trach Abdomen: normal bowel sounds, non tender, soft, no organomegaly, no mass Extremities: normal range of motion Edema: trace edema Neurologic: glass tube bender II-XII grossly normal, no motor/sensory deficits Laboratory Tests Test 12/14/16 08:00 White Blood Count 7.1 K/UL (4.8-10.8) Red Blood Count 3.46 M/UL (4.20-5.40) L Hemoglobin 8.2 G/DL (12.0-16.0) L Hematocrit 26.4 % (37.0-47.0) L Mean Corpuscular Volume 76 FL (80-99) L Mean Corpuscular Hemoglobin 23.8 PG (27.0-31.0) L Mean Corpuscular Hemoglobin Concent 31.1 G/DL (32.0-36.0) L Red Cell Distribution Width 18.6 % (11.6-14.8) H Platelet Count 348 K/UL (150-450) Mean Platelet Volume 6.3 FL (6.5-10.1) L Neutrophils (%) (Auto) 80.6 % (45.0-75.0) H Lymphocytes (%) (Auto) 9.9 % (20.0-45.0) L Monocytes (%) (Auto) 9.0 % (1.0-10.0) Eosinophils (%) (Auto) 0.1 % (0.0-3.0) Basophils (%) (Auto) 0.4 % (0.0-2.0) Prothrombin Time 11.4 SEC (9.30-11.50) Prothromb Time International Ratio 1.1 (0.9-1.1) Activated Partial Thromboplast Time 33 SEC (23-33) Sodium Level 137 mEQ/L (135-145) Potassium Level 3.4 mEQ/L (3.4-4.9) Chloride Level 96 mEQ/L (98-107) L Carbon Dioxide Level 28 mEQ/L (20-30) Anion Gap 13 (5-15) Blood Urea Nitrogen 8 mg/dL (7-23) Creatinine 0.5 mg/dL (0.5-0.9) Estimat Glomerular Filtration Rate > 60 mL/min (>60) Glucose Level 108 mg/dL (74-106) H Calcium Level 8.3 mg/dL (8.6-10.2) L Phosphorus Level 2.7 mg/dL (2.5-4.8) Magnesium Level 1.9 mg/dL (1.7-2.5) Total Bilirubin 0.2 mg/dL (0.0-1.2) Aspartate Amino Transf (AST/SGOT) 33 U/L (5-40) Alanine Aminotransferase (ALT/SGPT) 14 U/L (3-33) Alkaline Phosphatase 105 U/L (35-104) H Total Protein 6.1 g/dL (6.6-8.7) L Albumin 3.2 g/dL (3.5-5.2) L Globulin 2.9 g/dL Albumin/Globulin Ratio 1.1 (1.0-2.7) Microbiology Date/Time Source Procedure Growth Status 12/12/16 15:03 Sputum Gram Stain - Final Complete 12/12/16 15:03 Sputum Sputum Culture - Final NORMAL UPPER RESPIRATORY ANDREI AT 48 ... Complete 12/11/16 22:10 Nasal Nares MRSA Culture - Final Staphylococcus Aureus - Mrsa Complete 12/11/16 22:10 Rectum VRE Culture - Final NO VANCOMYCIN RESISTANT ENTEROCOCCUS ... Complete Intake and Output 12/13/16 12/14/16 19:00 07:00 Intake Total 652.500 ml 652.50 ml Output Total 400 ml 1000 ml Balance 252.500 ml -347.50 ml Intake Oral 240 ml 240 ml IV Total 412.500 ml 412.50 ml Output Urine Total 400 ml 1000 ml # Voids 1 # Bowel Movements 1 1 Assessment/Plan Problem List: (1) HTN (hypertension) Assessment & Plan: Cont coreg (2) Hypothyroidism Assessment & Plan: Cont levoxyl (3) Cancer of breast (4) Pneumonia Assessment & Plan: See pulmonary note. Cont vanco and zosyn (5) Shortness of breath (6) Metastatic adenocarcinoma (7) Tracheostomy in place Assessment & Plan: See speech therapy note concerning change trach to Portex 6 or downsize. Attempt to get name of physician who placed the trach at [facility] from patient daughter, Brandy this afternoon. (8) Diabetes Assessment & Plan: cont novolog sliding scale. (9) Anemia (10) Iron deficiency Assessment & Plan: On IV venofer. Status: progressing Assessment/Plan Discharge planning after trach replaced: Home oxygen. PRABHU FINNEY Dec 14, 2016 10:32
[2016-12-14 12:00] VITALS: BP 132/73
--- NOTE | 2016-12-14 12:13 | Pulmonology Progress Note ---
Assessment/Plan Problems: (1) Pneumonia (2) Diabetes (3) Metastatic adenocarcinoma (4) Anemia (5) Iron deficiency (6) Status post tracheostomy Assessment/Plan swallow study noted. pts trach was changed at [place] to size 6 ROXY keating kathleen pascal and flower sputum was sent, results pending sliding scale, insulin coverage med/surg Iv venofer check stool for OB dc plannign soon with home oxygen Subjective ROS Limited/Unobtainable: No Interval Events: improving, no new complains Allergies: Coded Allergies: ONDANSETRON (Verified Allergy, Unknown, 12/12/16) SULFAMETHOXAZOLE (Verified Allergy, Unknown, 12/11/16) TRIMETHOPRIM (Verified Allergy, Unknown, 12/11/16) Objective Last 24 Hour Vital Signs Date Time Temp Pulse Resp B/P Pulse Ox O2 Delivery O2 Flow Rate FiO2 12/14/16 12:03 Room Air 88.0 12/14/16 10:04 97.9 12/14/16 09:04 96 142/72 12/14/16 08:39 97.9 96 18 142/72 97 Trach Collar 12/14/16 07:49 80 12/14/16 07:40 78 20 99 T-piece 8.0 30 12/14/16 07:40 Trach Collar 8.0 30 12/14/16 07:40 98 Trach Collar 8.0 30 12/14/16 07:40 78 20 99 T-piece 8.0 30 12/14/16 04:05 98.5 79 18 129/72 97 Room Air 12/14/16 04:00 84 12/14/16 03:47 94 20 100 Trach Collar 8.0 30 12/14/16 03:47 30 12/14/16 03:46 91 20 98 Trach Collar 8.0 30 12/14/16 00:05 97.8 86 19 128/74 96 Trach Collar 12/13/16 23:42 83 12/13/16 22:46 92 20 99 T-piece 8.0 30 12/13/16 22:44 90 20 98 T-piece 8.0 30 12/13/16 20:00 91 12/13/16 20:00 98.2 86 20 139/69 98 Room Air 12/13/16 19:30 Trach Collar 8.0 30 12/13/16 19:30 97 Trach Collar 8.0 30 12/13/16 18:17 83 158/74 12/13/16 16:01 83 12/13/16 16:00 97.9 83 18 158/74 100 Room Air 12/13/16 15:30 90 16 100 T-piece 8.0 35 12/13/16 15:16 80 16 99 T-piece 8.0 35 Intake and Output 12/13/16 12/14/16 19:00 07:00 Intake Total 652.500 ml 652.50 ml Output Total 400 ml 1000 ml Balance 252.500 ml -347.50 ml Intake Oral 240 ml 240 ml IV Total 412.500 ml 412.50 ml Output Urine Total 400 ml 1000 ml # Voids 1 # Bowel Movements 1 1 General Appearance: WD/WN HEENT: normocephalic, atraumatic Respiratory/Chest: chest wall non-tender, lungs clear, other - trach in place Cardiovascular: normal peripheral pulses, normal rate Abdomen: normal bowel sounds, soft, non tender Extremities: no cyanosis, no clubbing Skin: no rash Neurologic/Psychiatric: normal mood/affect Microbiology Date/Time Source Procedure Growth Status 12/12/16 15:03 Sputum Gram Stain - Final Complete 12/12/16 15:03 Sputum Sputum Culture - Final NORMAL UPPER RESPIRATORY ANDREI AT 48 ... Complete 12/11/16 22:10 Nasal Nares MRSA Culture - Final Staphylococcus Aureus - Mrsa Complete 12/11/16 22:10 Rectum VRE Culture - Final NO VANCOMYCIN RESISTANT ENTEROCOCCUS ... Complete Laboratory Tests 12/14/16 08:00: White Blood Count 7.1, Red Blood Count 3.46L, Hemoglobin 8.2L, Hematocrit 26.4L , Mean Corpuscular Volume 76L, Mean Corpuscular Hemoglobin 23.8L, Mean Corpuscular Hemoglobin Concent 31.1L, Red Cell Distribution Width 18.6H, Platelet Count 348, Mean Platelet Volume 6.3L, Neutrophils (%) (Auto) 80.6H, Lymphocytes (%) (Auto) 9.9L, Monocytes (%) (Auto) 9.0, Eosinophils (%) (Auto) 0.1, Basophils (%) (Auto) 0.4, Prothrombin Time 11.4, Prothromb Time International Ratio 1.1, Activated Partial Thromboplast Time 33, Sodium Level 137, Potassium Level 3.4, Chloride Level 96L, Carbon Dioxide Level 28, Anion Gap 13, Blood Urea Nitrogen 8, Creatinine 0.5, Estimat Glomerular Filtration Rate > 60, Glucose Level 108H, Calcium Level 8.3L, Phosphorus Level 2.7, Magnesium Level 1.9, Total Bilirubin 0.2, Aspartate Amino Transf (AST/SGOT) 33, Alanine Aminotransferase (ALT/SGPT) 14, Alkaline Phosphatase 105H, Total Protein 6.1L, Albumin 3.2L, Globulin 2.9, Albumin/Globulin Ratio 1.1 Current Medications Medications (Trade) Dose Ordered Sig/Trung Route PRN Reason Start Time Stop Time Status Last Admin Dose Admin Acetaminophen (Tylenol) 650 mg Q4H PRN ORAL fever 12/11/16 18:00 01/10/17 17:59 Albuterol/ Ipratropium (DuoNeb 0.5-3(2.5)mg/3ml) 3 ml Q4HR PRN HHN Shortness of Breath 12/11/16 18:00 12/16/16 17:59 12/14/16 03:46 Albuterol/ Ipratropium (DuoNeb 0.5-3(2.5)mg/3ml) 3 ml Q8HR HHN 12/11/16 22:00 12/16/16 21:59 12/14/16 09:00 Atorvastatin Calcium (Lipitor) 10 mg BEDTIME ORAL 12/11/16 21:30 01/10/17 21:29 12/13/16 21:35 Carvedilol (Coreg) 6.25 mg BID ORAL 12/12/16 09:00 01/11/17 08:59 12/14/16 09:04 Chlorpromazine (Thorazine) 10 mg BID ORAL 12/12/16 09:00 01/11/17 08:59 12/13/16 18:17 Clonidine HCl (Catapres) 0.1 mg Q4H PRN ORAL For High Blood Pressure 12/11/16 18:15 01/10/17 18:14 Dexamethasone (Decadron) 4 mg DAILY ORAL 12/12/16 09:00 01/11/17 08:59 12/14/16 09:05 Dextrose (Dextrose 50%) STAT PRN IV Hypoglycemia 12/11/16 18:00 01/10/17 17:59 Diphenhydramine HCl (Benadryl) 50 mg Q12HR PRN ORAL Itching/Pruritis 12/11/16 18:00 01/10/17 17:59 Furosemide (Lasix) 20 mg DAILY ORAL 12/12/16 09:00 01/11/17 08:59 12/14/16 09:04 Insulin Aspart (NovoLOG) BEFORE MEALS AND HS SUBQ 12/11/16 21:00 01/10/17 20:59 12/14/16 11:45 Iron Sucrose/ Sodium Chloride (Venofer/Sodium Chloride) 115 ml @ 460 mls/hr BEDTIME IVPB 12/13/16 21:00 12/17/16 21:14 12/13/16 21:39 Levothyroxine Sodium (Synthroid) 112 mcg DAILY@0630 ORAL 12/12/16 06:30 01/11/17 06:29 12/14/16 06:38 Morphine Sulfate (MS Contin) 15 mg Q12HR ORAL 12/12/16 09:00 12/19/16 08:59 12/14/16 09:05 Morphine Sulfate (Morphine Sulfate) 2 mg Q4H PRN IVP for mild - moderate pain 12/11/16 22:15 12/18/16 22:14 12/12/16 21:40 Morphine Sulfate 4 mg 4 mg Q4H PRN IVP Severe Pain (Pain Scale 7-10) 12/11/16 22:15 12/18/16 22:14 Oxycodone HCl (Roxicodone) 15 mg Q4H PRN ORAL Breakthrough Pain 12/11/16 22:15 12/18/16 22:14 Pantoprazole (Protonix) 40 mg DAILY ORAL 12/12/16 09:00 01/11/17 08:59 12/14/16 09:05 Piperacillin Sod/ Tazobactam Sod/ Dextrose (Zosyn/D5W 100ml) 110 ml @ 27.5 mls/hr Q8H IVPB 12/12/16 01:00 12/19/16 00:59 12/14/16 09:05 Pregabalin (Lyrica) 100 mg BID ORAL 12/12/16 09:00 01/11/17 08:59 Prochlorperazine (Compazine) 10 mg TID PRN ORAL Nausea & Vomiting 12/11/16 18:30 01/10/17 18:29 Promethazine HCl/ Codeine 5 ml 5 ml Q4H PRN ORAL For Cough 12/12/16 12:30 01/11/17 12:29 Sumatriptan Succinate (Imitrex) 100 mg DAILY PRN ORAL For Pain 12/11/16 18:30 01/10/17 18:29 12/14/16 09:03 Temazepam (Restoril) 15 mg QHS PRN ORAL Insomnia 12/11/16 18:00 12/18/16 17:59 12/12/16 22:22 Vancomycin HCl (Vanco rx to dose) 1 ea DAILY PRN MISC Per rx protocol 12/11/16 18:15 01/10/17 18:14 Vancomycin HCl 1 gm/Dextrose 275 ml @ 183.708 mls/hr Q12H IVPB 12/13/16 12:00 12/18/16 11:59 12/14/16 00:45 KAYLA ESPINOZA Dec 14, 2016 12:12
--- NOTE | 2016-12-14 15:54 | Consultation ---
Consult Note Consult Note ID CONSULT: Dict# [id number] Assessment/Plan ASSESSMENT: 61 y/o female with: // Possible HCAP - SCx NRF - CXR 12/12: Pulmonary bibasal subsegmental atelectasis and/or pneumonias. Nonspecific bilateral interstitial prominence, may relate to technique. Acute or chronic interstitial infiltrates not excludable // Afebrile without leukocytosis ( on steroids ) // Acute on chronic respiratory failure / trach collar - SP trach change, bronch @ [place], reportedly no mucous plugging - mediastinal, lung mets, malignant pleural effusion // Recurrent metastatic breast CA SP chemo, XRT // Elevated CEA // Bactrim allergy // Full Code PLAN: - continue IV vancomycin, zosyn d# / . Ok to complete course with PO levaquin at discharge - taper steroids per pulm - monitor CBC, temperatures, re-culture if acute change - monitor BMP - monitor CXR - repeat - respiratory support d/w Dr. Hernandez, daughter at bedside Thanks! Will follow BRI GILMORE Dec 14, 2016 15:54
[2016-12-14 16:00] VITALS: BP 162/79
[2016-12-14 20:00] VITALS: BP 159/77
--- NOTE | 2016-12-14 21:17 | Consultation ---
DATE OF CONSULTATION: 12/14/2016 INFECTIOUS DISEASE CONSULTATION CONSULTING PHYSICIAN: Tim Weston M.D. REQUESTING PHYSICIAN: Jesus Hernandez M.D. REASON FOR CONSULTATION: Pneumonia. HISTORY OF PRESENT ILLNESS: This is a 61-year-old female with a history of recurrent metastatic breast cancer, on chemotherapy, admitted on 12/11/2016 with shortness of breath. The patient was recently seen at [facility] and had her trach downsized and bronchoscopy performed. There was reportedly no mucus plugs. A sputum culture is growing normal respiratory grover. Chest x-ray shows bibasilar atelectasis versus infiltrate. She is currently on vancomycin and Zosyn day #4 and ID now consulted to assist in management. PAST MEDICAL HISTORY: 1. Recurrent metastatic breast cancer with bone, mediastinal, and lung metastasis and malignant pleural effusion. 2. Hypertension. 3. Hypothyroidism. PAST SURGICAL HISTORY: Tracheostomy. MEDICATIONS: 1. Vancomycin day #4. 2. Zosyn day #4. 3. Decadron. 4. Coreg. 5. Lasix. 6. Lyrica. 7. Thorazine. 8. Protonix. 9. Synthroid. ALLERGIES: 1. Bactrim. 2. Zofran. SOCIAL HISTORY: The patient is and disabled. She has family involved in her care. No active tobacco, alcohol, or illicit drug abuse. FAMILY HISTORY: Noncontributory. REVIEW OF SYSTEMS: Unable to obtain. PHYSICAL EXAMINATION: GENERAL: In no apparent distress. Non-toxic appearing. VITAL SIGNS: Maximum temperature 99.9 degrees, blood pressure 132/73, heart rate in the 80s, respiratory rate 18, and saturating 97% on trach collar. HEENT: Tracheostomy tube in place. CARDIOVASCULAR: Regular rate and rhythm. No murmurs. PULMONARY: Coarse breath sounds bilaterally abdominal. ABDOMEN: Bowel sounds present. Soft, nondistended, and nontender. EXTREMITIES: No edema. LABORATORY DATA: White blood cell count 7.1, hemoglobin 8.2, and platelets 348,000. Sodium 137, potassium 3.4, chloride 96, bicarbonate 28, BUN 8, and creatinine 0.5. AST 33, ALT 14, and alkaline phosphatase 105. Total bilirubin 0.2. Albumin 3.2. CEA 8.5. LDH 205. MICROBIOLOGY: On 12/12/2016, sputum culture, normal respiratory grover. IMAGING: On 12/12/2016, chest x-ray bibasilar atelectasis versus infiltrate. ASSESSMENT: 1. Possible healthcare-associated pneumonia. Sputum culture is growing normal respiratory grover. Chest x-ray shows bibasilar segmental atelectasis and/or pneumonia. 2. Afebrile without leukocytosis, on steroids. 3. Acute on chronic respiratory failure, on trach collar. She is status post tracheostomy change and bronchoscopy at [place] prior to transfer. Reportedly no mucus plugging. She has known mediastinal and lung metastases and history of malignant pleural effusion. 4. Recurrent metastatic breast cancer status post chemo and radiation. 5. Elevated CEA. 6. Bactrim allergy. 7. Full Code. PLAN: 1. Continue IV vancomycin and Zosyn day # 4 of 7. Okay to complete course with oral Levaquin at discharge. 2. Taper steroids per Pulmonary. 3. Monitor CBC and temperatures and re-culture if acute change. 4. Monitor BMP. 5. Monitor chest x-ray. Repeat. 6. Respiratory support. 7. Discussed with daughter at bedside and Dr. Hernandez. Thank you. We will follow. Tim Weston M.D. DR: OLIVER JOB#: [id number] CC: Lamar Smith M.D. Kevin Smith, M.D.
[2016-12-14] MEDS: Iron Sucrose 100 MG in NS 110 ML IVPB SCH (21:52)
[2016-12-15 00:07] VITALS: BP 154/66
[2016-12-15] MEDS: Vancomycin 1gm in D5W 250ml IVPB SCH ×2 (00:22→11:39)
[2016-12-15] MEDS: Piperacillin/Tazobactam 3.375 GM in D5W 110 ML IVPB SCH ×3 (02:02→17:39)
[2016-12-15 04:03] VITALS: BP 117/55
[2016-12-15] MEDS: SUMAtriptan 100mg tab ORAL PRN ×2 (06:25→20:19)
[2016-12-15] MEDS: NovoLOG Insulin Flexpen SUBQ SCH ×4 (06:30→21:00)
[2016-12-15] MEDS: DuoNeb 0.5-3(2.5)mg/3ml neb HHN SCH ×3 (07:16→22:41)
[2016-12-15 07:51] LABS: BASOPHILS % (AUTO) 0.4 % (0.0-2.0); EOSINOPHILS % (AUTO) 0.3 % (0.0-3.0); LYMPHOCYTES % (AUTO) 12.4 % (20.0-45.0); MEAN CORPUSCULAR HEMOGLOBIN 23.5 PG (27.0-31.0); MEAN CORPUSCULAR HGB CONC 30.3 G/DL (32.0-36.0); MEAN CORPUSCULAR VOLUME 78 FL (80-99); MEAN PLATELET VOLUME 6.1 FL (6.5-10.1); NEUTROPHILS % (AUTO) 76.9 % (45.0-75.0); PLATELET COUNT 361 K/UL (150-450); RED BLOOD COUNT 3.81 M/UL (4.20-5.40); RED CELL DISTRIBUTION WIDTH 19.4 % (11.6-14.8); WHITE BLOOD COUNT 6.4 K/UL (4.8-10.8)
[2016-12-15 07:59] LABS: ANION GAP 12 (5-15); CALCIUM 8.8 mg/dL (8.6-10.2); CARBON DIOXIDE 29 mEQ/L (20-30); CHLORIDE 95 mEQ/L (98-107); CREATININE 0.6 mg/dL (0.5-0.9); GLOMERULAR FILTRATION RATE > 60 mL/min (>60); HEMOLYSIS 2; POTASSIUM 3.6 mEQ/L (3.4-4.9); SODIUM 136 mEQ/L (135-145)
[2016-12-15] MEDS: chlorproMAZINE 10mg tab ORAL SCH ×2 (08:14→18:00)
[2016-12-15] MEDS: Lyrica 50mg cap ORAL SCH ×3 (08:15→18:00)
[2016-12-15] MEDS: MS Contin 15mg tab ORAL SCH ×2 (08:16→22:08)
[2016-12-15] MEDS: Carvedilol 6.25mg Tab ORAL SCH ×2 (08:18→17:40)
[2016-12-15 08:37] VITALS: BP 149/74
[2016-12-15] MEDS: Morphine Sulfate 2mg/ml Inj IVP PRN ×2 (12:00→17:40)
[2016-12-15 12:20] VITALS: BP 128/70
--- NOTE | 2016-12-15 13:00 | Pulmonology Progress Note ---
Assessment/Plan Problems: (1) Status post tracheostomy (2) Hypoxemia (3) Pneumonia (4) Diabetes (5) Metastatic adenocarcinoma (6) Anemia (7) Iron deficiency Assessment/Plan cxr reviwed, RLL improved, LLL unchanged swallow study noted. pts trach was changed at [place] to size 6 MRASA nares continue [facility] and zosyn sputum was sent, results pending sliding scale, insulin coverage med/surg Iv venofer check stool for OB dc plannign soon with home oxygen Subjective ROS Limited/Unobtainable: No Allergies: Coded Allergies: ONDANSETRON (Verified Allergy, Unknown, 12/12/16) SULFAMETHOXAZOLE (Verified Allergy, Unknown, 12/11/16) TRIMETHOPRIM (Verified Allergy, Unknown, 12/11/16) Objective Last 24 Hour Vital Signs Date Time Temp Pulse Resp B/P Pulse Ox O2 Delivery O2 Flow Rate FiO2 12/15/16 12:30 97.5 12/15/16 12:20 97.5 80 18 128/70 97 Trach Collar 12/15/16 09:15 97.0 12/15/16 08:37 97.0 81 20 149/74 97 Trach Collar 12/15/16 08:18 73 154/61 12/15/16 08:00 87 12/15/16 07:26 83 16 100 Trach Collar 10.0 30 12/15/16 07:15 80 16 100 Trach Collar 10.0 30 12/15/16 07:15 100 Trach Collar 10.0 30 12/15/16 07:15 Trach Collar 8.0 30 12/15/16 04:03 98.7 77 18 117/55 97 Trach Collar 12/15/16 04:00 76 12/15/16 00:07 97.2 92 19 154/66 94 Trach Collar 12/15/16 00:00 92 12/14/16 23:01 97 18 100 T-piece 8.0 30 12/14/16 22:56 98 20 100 T-piece 10.0 30 12/14/16 20:00 96 12/14/16 20:00 98.1 92 19 159/77 96 Room Air 12/14/16 19:40 Trach Collar 8.0 30 12/14/16 19:39 98 Trach Collar 10.0 30 12/14/16 18:13 79 162/79 12/14/16 16:00 79 12/14/16 16:00 97.3 79 18 162/79 100 Room Air 12/14/16 15:40 80 20 100 T-piece 8.0 30 12/14/16 15:40 89 20 99 T-piece 8.0 30 Intake and Output 12/14/16 12/15/16 19:00 07:00 Intake Total 533.7 ml 570.0 ml Balance 533.7 ml 570.0 ml Intake Oral 240 ml IV Total 293.7 ml 570.0 ml # Voids 2 1 Microbiology Date/Time Source Procedure Growth Status 12/12/16 15:03 Sputum Gram Stain - Final Complete 12/12/16 15:03 Sputum Sputum Culture - Final NORMAL UPPER RESPIRATORY ANDREI AT 48 ... Complete Laboratory Tests 12/14/16 23:10: Random Vancomycin Level 12.1 12/15/16 07:15: White Blood Count 6.4, Red Blood Count 3.81L, Hemoglobin 8.9L, Hematocrit 29.5L , Mean Corpuscular Volume 78L, Mean Corpuscular Hemoglobin 23.5L, Mean Corpuscular Hemoglobin Concent 30.3L, Red Cell Distribution Width 19.4H, Platelet Count 361, Mean Platelet Volume 6.1L, Neutrophils (%) (Auto) 76.9H, Lymphocytes (%) (Auto) 12.4L, Monocytes (%) (Auto) 10.0, Eosinophils (%) (Auto) 0.3, Basophils (%) (Auto) 0.4, Sodium Level 136, Potassium Level 3.6, Chloride Level 95L, Carbon Dioxide Level 29, Anion Gap 12, Blood Urea Nitrogen 7, Creatinine 0.6, Estimat Glomerular Filtration Rate > 60, Glucose Level 109H, Calcium Level 8.8 Current Medications Medications (Trade) Dose Ordered Sig/Trung Route PRN Reason Start Time Stop Time Status Last Admin Dose Admin Acetaminophen (Tylenol) 650 mg Q4H PRN ORAL fever 12/11/16 18:00 01/10/17 17:59 Albuterol/ Ipratropium (DuoNeb 0.5-3(2.5)mg/3ml) 3 ml Q4HR PRN HHN Shortness of Breath 12/11/16 18:00 12/16/16 17:59 12/14/16 03:46 Albuterol/ Ipratropium (DuoNeb 0.5-3(2.5)mg/3ml) 3 ml Q8HR HHN 12/11/16 22:00 12/16/16 21:59 12/15/16 07:16 Atorvastatin Calcium (Lipitor) 10 mg BEDTIME ORAL 12/11/16 21:30 01/10/17 21:29 12/14/16 21:53 Carvedilol (Coreg) 6.25 mg BID ORAL 12/12/16 09:00 01/11/17 08:59 12/15/16 08:18 Chlorpromazine (Thorazine) 10 mg BID ORAL 12/12/16 09:00 01/11/17 08:59 12/15/16 08:14 Clonidine HCl (Catapres) 0.1 mg Q4H PRN ORAL For High Blood Pressure 12/11/16 18:15 01/10/17 18:14 Dexamethasone (Decadron) 4 mg DAILY ORAL 12/12/16 09:00 01/11/17 08:59 12/15/16 08:15 Dextrose (Dextrose 50%) STAT PRN IV Hypoglycemia 12/11/16 18:00 01/10/17 17:59 Diphenhydramine HCl (Benadryl) 50 mg Q12HR PRN ORAL Itching/Pruritis 12/11/16 18:00 01/10/17 17:59 Furosemide (Lasix) 20 mg DAILY ORAL 12/12/16 09:00 01/11/17 08:59 12/15/16 08:16 Insulin Aspart (NovoLOG) BEFORE MEALS AND HS SUBQ 12/11/16 21:00 01/10/17 20:59 12/15/16 11:41 Iron Sucrose/ Sodium Chloride (Venofer/Sodium Chloride) 115 ml @ 460 mls/hr BEDTIME IVPB 12/13/16 21:00 12/17/16 21:14 12/14/16 21:52 Levothyroxine Sodium (Synthroid) 112 mcg DAILY@0630 ORAL 12/12/16 06:30 01/11/17 06:29 12/15/16 06:31 Morphine Sulfate (MS Contin) 15 mg Q12HR ORAL 12/12/16 09:00 12/19/16 08:59 12/15/16 08:16 Morphine Sulfate (Morphine Sulfate) 2 mg Q4H PRN IVP for mild - moderate pain 12/11/16 22:15 12/18/16 22:14 12/15/16 12:00 Morphine Sulfate 4 mg 4 mg Q4H PRN IVP Severe Pain (Pain Scale 7-10) 12/11/16 22:15 12/18/16 22:14 Oxycodone HCl (Roxicodone) 15 mg Q4H PRN ORAL Breakthrough Pain 12/11/16 22:15 12/18/16 22:14 Pantoprazole (Protonix) 40 mg DAILY ORAL 12/12/16 09:00 01/11/17 08:59 12/15/16 08:17 Piperacillin Sod/ Tazobactam Sod/ Dextrose (Zosyn/D5W 100ml) 110 ml @ 27.5 mls/hr Q8H IVPB 12/12/16 01:00 12/19/16 00:59 12/15/16 08:14 Pregabalin (Lyrica) 100 mg BID ORAL 12/12/16 09:00 01/11/17 08:59 Prochlorperazine (Compazine) 10 mg TID PRN ORAL Nausea & Vomiting 12/11/16 18:30 01/10/17 18:29 12/14/16 22:03 Promethazine HCl/ Codeine 5 ml 5 ml Q4H PRN ORAL For Cough 12/12/16 12:30 01/11/17 12:29 Sumatriptan Succinate (Imitrex) 100 mg DAILY PRN ORAL For Pain 12/11/16 18:30 01/10/17 18:29 12/15/16 06:25 Temazepam (Restoril) 15 mg QHS PRN ORAL Insomnia 12/11/16 18:00 12/18/16 17:59 12/15/16 00:22 Vancomycin HCl (Vanco rx to dose) 1 ea DAILY PRN MISC Per rx protocol 12/11/16 18:15 01/10/17 18:14 Vancomycin HCl 1 gm/Dextrose 275 ml @ 183.708 mls/hr Q12H IVPB 12/13/16 12:00 12/18/16 11:59 12/15/16 11:39 KAYLA ESPINOZA Dec 15, 2016 13:00
--- NOTE | 2016-12-15 14:11 | Diagnostic Imaging Report ---
Indication: Dysphasia Procedure and findings: Real-time fluoroscopic imaging performed in a lateral projection in conjunction with the speech pathologist evaluation. Variable consistencies of barium given per mouth. Findings: Significant abnormalities of both oral and pharyngeal phases of swallowing are demonstrated. Total fluoroscopic time 261 seconds. Trace penetration demonstrated with barium. No aspiration demonstrated. Abnormal video swallow. Please refer to speech pathology evaluation for more information.
[2016-12-15 16:00] VITALS: BP 151/88
--- NOTE | 2016-12-15 16:32 | Infectious Diseases Prog Note ---
Assessment/Plan Assessment/Plan ASSESSMENT: 61 y/o female with: // Possible HCAP - SCx NRF - CXR 12/12: Pulmonary bibasal subsegmental atelectasis and/or pneumonias. Nonspecific bilateral interstitial prominence, may relate to technique. Acute or chronic interstitial infiltrates not excludable, repeat pending // Afebrile without leukocytosis ( on steroids ) // Acute on chronic respiratory failure / trach collar - SP trach change, bronch @ [place], reportedly no mucous plugging - mediastinal, lung mets, malignant pleural effusion // Recurrent metastatic breast CA SP chemo, XRT // Elevated CEA // Bactrim allergy // Full Code PLAN: - continue IV vancomycin, zosyn d# 5 / . Ok to complete course with PO levaquin at discharge - taper steroids per pulm - monitor CBC, temperatures, re-culture if acute change - monitor BMP - monitor CXR - f/u repeat - respiratory support - possible transfer to [facility] Subjective Allergies: Coded Allergies: ONDANSETRON (Verified Allergy, Unknown, 12/12/16) SULFAMETHOXAZOLE (Verified Allergy, Unknown, 12/11/16) TRIMETHOPRIM (Verified Allergy, Unknown, 12/11/16) Subjective remains afebrile. c/o SOB wants to transfer to [facility] Objective Vital Signs Last 24 Hour Vital Signs Date Time Temp Pulse Resp B/P Pulse Ox O2 Delivery O2 Flow Rate FiO2 12/15/16 14:48 85 16 100 Trach Collar 10.0 30 12/15/16 14:38 85 16 100 Trach Collar 10.0 30 12/15/16 12:30 97.5 12/15/16 12:20 97.5 80 18 128/70 97 Trach Collar 12/15/16 12:00 78 12/15/16 09:15 97.0 12/15/16 08:37 97.0 81 20 149/74 97 Trach Collar 12/15/16 08:18 73 154/61 12/15/16 08:00 87 12/15/16 07:26 83 16 100 Trach Collar 10.0 30 12/15/16 07:15 80 16 100 Trach Collar 10.0 30 12/15/16 07:15 100 Trach Collar 10.0 30 12/15/16 07:15 Trach Collar 8.0 30 12/15/16 04:03 98.7 77 18 117/55 97 Trach Collar 12/15/16 04:00 76 12/15/16 00:07 97.2 92 19 154/66 94 Trach Collar 12/15/16 00:00 92 12/14/16 23:01 97 18 100 T-piece 8.0 30 12/14/16 22:56 98 20 100 T-piece 10.0 30 12/14/16 20:00 96 12/14/16 20:00 98.1 92 19 159/77 96 Room Air 12/14/16 19:40 Trach Collar 8.0 30 12/14/16 19:39 98 Trach Collar 10.0 30 12/14/16 18:13 79 162/79 Height (Feet): 5 Height (Inches): 3.00 Weight (Pounds): 134 General Appearance: no acute distress HEENT: status post trach Respiratory/Chest: decreased breath sounds Cardiovascular: normal rate, regular rhythm Abdomen: normal bowel sounds, soft, non tender, non distended Laboratory Tests Test 12/14/16 23:10 12/15/16 07:15 Random Vancomycin Level 12.1 ug/mL White Blood Count 6.4 K/UL (4.8-10.8) Red Blood Count 3.81 M/UL (4.20-5.40) L Hemoglobin 8.9 G/DL (12.0-16.0) L Hematocrit 29.5 % (37.0-47.0) L Mean Corpuscular Volume 78 FL (80-99) L Mean Corpuscular Hemoglobin 23.5 PG (27.0-31.0) L Mean Corpuscular Hemoglobin Concent 30.3 G/DL (32.0-36.0) L Red Cell Distribution Width 19.4 % (11.6-14.8) H Platelet Count 361 K/UL (150-450) Mean Platelet Volume 6.1 FL (6.5-10.1) L Neutrophils (%) (Auto) 76.9 % (45.0-75.0) H Lymphocytes (%) (Auto) 12.4 % (20.0-45.0) L Monocytes (%) (Auto) 10.0 % (1.0-10.0) Eosinophils (%) (Auto) 0.3 % (0.0-3.0) Basophils (%) (Auto) 0.4 % (0.0-2.0) Sodium Level 136 mEQ/L (135-145) Potassium Level 3.6 mEQ/L (3.4-4.9) Chloride Level 95 mEQ/L (98-107) L Carbon Dioxide Level 29 mEQ/L (20-30) Anion Gap 12 (5-15) Blood Urea Nitrogen 7 mg/dL (7-23) Creatinine 0.6 mg/dL (0.5-0.9) Estimat Glomerular Filtration Rate > 60 mL/min (>60) Glucose Level 109 mg/dL (74-106) H Calcium Level 8.8 mg/dL (8.6-10.2) Current Medications Medications (Trade) Dose Ordered Sig/Trung Route PRN Reason Start Time Stop Time Status Last Admin Dose Admin Acetaminophen (Tylenol) 650 mg Q4H PRN ORAL fever 12/11/16 18:00 01/10/17 17:59 Albuterol/ Ipratropium (DuoNeb 0.5-3(2.5)mg/3ml) 3 ml Q4HR PRN HHN Shortness of Breath 12/11/16 18:00 12/16/16 17:59 12/14/16 03:46 Albuterol/ Ipratropium (DuoNeb 0.5-3(2.5)mg/3ml) 3 ml Q8HR HHN 12/11/16 22:00 12/16/16 21:59 12/15/16 14:37 Atorvastatin Calcium (Lipitor) 10 mg BEDTIME ORAL 12/11/16 21:30 01/10/17 21:29 12/14/16 21:53 Carvedilol (Coreg) 6.25 mg BID ORAL 12/12/16 09:00 01/11/17 08:59 12/15/16 08:18 Chlorpromazine (Thorazine) 10 mg BID ORAL 12/12/16 09:00 01/11/17 08:59 12/15/16 08:14 Clonidine HCl (Catapres) 0.1 mg Q4H PRN ORAL For High Blood Pressure 12/11/16 18:15 01/10/17 18:14 Dexamethasone (Decadron) 4 mg DAILY ORAL 12/12/16 09:00 01/11/17 08:59 12/15/16 08:15 Dextrose (Dextrose 50%) STAT PRN IV Hypoglycemia 12/11/16 18:00 01/10/17 17:59 Diphenhydramine HCl (Benadryl) 50 mg Q12HR PRN ORAL Itching/Pruritis 12/11/16 18:00 01/10/17 17:59 Furosemide (Lasix) 20 mg DAILY ORAL 12/12/16 09:00 01/11/17 08:59 12/15/16 08:16 Insulin Aspart (NovoLOG) BEFORE MEALS AND HS SUBQ 12/11/16 21:00 01/10/17 20:59 12/15/16 11:41 Iron Sucrose 100 mg/Sodium Chloride 115 ml @ 460 mls/hr BEDTIME IVPB 12/13/16 21:00 12/17/16 21:14 12/14/16 21:52 Levothyroxine Sodium (Synthroid) 112 mcg DAILY@0630 ORAL 12/12/16 06:30 01/11/17 06:29 12/15/16 06:31 Morphine Sulfate (MS Contin) 15 mg Q12HR ORAL 12/12/16 09:00 12/19/16 08:59 12/15/16 08:16 Morphine Sulfate (Morphine Sulfate) 2 mg Q4H PRN IVP for mild - moderate pain 12/11/16 22:15 12/18/16 22:14 12/15/16 12:00 Morphine Sulfate 4 mg 4 mg Q4H PRN IVP Severe Pain (Pain Scale 7-10) 12/11/16 22:15 12/18/16 22:14 Oxycodone HCl (Roxicodone) 15 mg Q4H PRN ORAL Breakthrough Pain 12/11/16 22:15 12/18/16 22:14 Pantoprazole (Protonix) 40 mg DAILY ORAL 12/12/16 09:00 01/11/17 08:59 12/15/16 08:17 Piperacillin Sod/ Tazobactam Sod/ Dextrose (Zosyn/D5W 100ml) 110 ml @ 27.5 mls/hr Q8H IVPB 12/12/16 01:00 12/19/16 00:59 12/15/16 08:14 Pregabalin (Lyrica) 100 mg BID ORAL 12/12/16 09:00 01/11/17 08:59 Prochlorperazine (Compazine) 10 mg TID PRN ORAL Nausea & Vomiting 12/11/16 18:30 01/10/17 18:29 12/14/16 22:03 Promethazine HCl/ Codeine 5 ml 5 ml Q4H PRN ORAL For Cough 12/12/16 12:30 01/11/17 12:29 Sumatriptan Succinate (Imitrex) 100 mg DAILY PRN ORAL For Pain 12/11/16 18:30 01/10/17 18:29 12/15/16 06:25 Temazepam (Restoril) 15 mg QHS PRN ORAL Insomnia 12/11/16 18:00 12/18/16 17:59 12/15/16 00:22 Vancomycin HCl (Vanco rx to dose) 1 ea DAILY PRN MISC Per rx protocol 12/11/16 18:15 01/10/17 18:14 Vancomycin HCl/ Dextrose (Vancomycin/D5W) 275 ml @ 183.708 mls/hr Q12HR@0000,1200 IVPB 12/16/16 00:00 12/21/16 00:00 BRI GILMORE Dec 15, 2016 16:32
--- NOTE | 2016-12-15 17:40 | Internal Med Progress Note ---
Subjective Date of Service: Dec 15, 2016 Physician Name Prabhu Finney Attending Physician Ranjeet Sarmiento MD Current Medications Medications (Trade) Dose Ordered Sig/Trung Route PRN Reason Start Time Stop Time Status Last Admin Dose Admin Acetaminophen (Tylenol) 650 mg Q4H PRN ORAL fever 12/11/16 18:00 01/10/17 17:59 Albuterol/ Ipratropium (DuoNeb 0.5-3(2.5)mg/3ml) 3 ml Q4HR PRN HHN Shortness of Breath 12/11/16 18:00 12/16/16 17:59 12/14/16 03:46 Albuterol/ Ipratropium (DuoNeb 0.5-3(2.5)mg/3ml) 3 ml Q8HR HHN 12/11/16 22:00 12/16/16 21:59 12/15/16 14:37 Atorvastatin Calcium (Lipitor) 10 mg BEDTIME ORAL 12/11/16 21:30 01/10/17 21:29 12/14/16 21:53 Carvedilol (Coreg) 6.25 mg BID ORAL 12/12/16 09:00 01/11/17 08:59 12/15/16 08:18 Chlorpromazine (Thorazine) 10 mg BID ORAL 12/12/16 09:00 01/11/17 08:59 12/15/16 08:14 Clonidine HCl (Catapres) 0.1 mg Q4H PRN ORAL For High Blood Pressure 12/11/16 18:15 01/10/17 18:14 Dexamethasone (Decadron) 4 mg DAILY ORAL 12/12/16 09:00 01/11/17 08:59 12/15/16 08:15 Dextrose (Dextrose 50%) STAT PRN IV Hypoglycemia 12/11/16 18:00 01/10/17 17:59 Diphenhydramine HCl (Benadryl) 50 mg Q12HR PRN ORAL Itching/Pruritis 12/11/16 18:00 01/10/17 17:59 Furosemide (Lasix) 20 mg DAILY ORAL 12/12/16 09:00 01/11/17 08:59 12/15/16 08:16 Insulin Aspart (NovoLOG) BEFORE MEALS AND HS SUBQ 12/11/16 21:00 01/10/17 20:59 12/15/16 11:41 Iron Sucrose 100 mg/Sodium Chloride 115 ml @ 460 mls/hr BEDTIME IVPB 12/13/16 21:00 12/17/16 21:14 12/14/16 21:52 Levothyroxine Sodium (Synthroid) 112 mcg DAILY@0630 ORAL 12/12/16 06:30 01/11/17 06:29 12/15/16 06:31 Morphine Sulfate (MS Contin) 15 mg Q12HR ORAL 12/12/16 09:00 12/19/16 08:59 12/15/16 08:16 Morphine Sulfate (Morphine Sulfate) 2 mg Q4H PRN IVP for mild - moderate pain 12/11/16 22:15 12/18/16 22:14 12/15/16 12:00 Morphine Sulfate 4 mg 4 mg Q4H PRN IVP Severe Pain (Pain Scale 7-10) 12/11/16 22:15 12/18/16 22:14 Oxycodone HCl (Roxicodone) 15 mg Q4H PRN ORAL Breakthrough Pain 12/11/16 22:15 12/18/16 22:14 Pantoprazole (Protonix) 40 mg DAILY ORAL 12/12/16 09:00 01/11/17 08:59 12/15/16 08:17 Piperacillin Sod/ Tazobactam Sod/ Dextrose (Zosyn/D5W 100ml) 110 ml @ 27.5 mls/hr Q8H IVPB 12/12/16 01:00 12/19/16 00:59 12/15/16 08:14 Pregabalin (Lyrica) 100 mg BID ORAL 12/12/16 09:00 01/11/17 08:59 Prochlorperazine (Compazine) 10 mg TID PRN ORAL Nausea & Vomiting 12/11/16 18:30 01/10/17 18:29 12/14/16 22:03 Promethazine HCl/ Codeine 5 ml 5 ml Q4H PRN ORAL For Cough 12/12/16 12:30 01/11/17 12:29 Sumatriptan Succinate (Imitrex) 100 mg DAILY PRN ORAL For Pain 12/11/16 18:30 01/10/17 18:29 12/15/16 06:25 Temazepam (Restoril) 15 mg QHS PRN ORAL Insomnia 12/11/16 18:00 12/18/16 17:59 12/15/16 00:22 Vancomycin HCl (Vanco rx to dose) 1 ea DAILY PRN MISC Per rx protocol 12/11/16 18:15 01/10/17 18:14 Vancomycin HCl/ Dextrose (Vancomycin/D5W) 275 ml @ 183.708 mls/hr Q12HR@0000,1200 IVPB 12/16/16 00:00 12/21/16 00:00 Allergies: Coded Allergies: ONDANSETRON (Verified Allergy, Unknown, 12/12/16) SULFAMETHOXAZOLE (Verified Allergy, Unknown, 12/11/16) TRIMETHOPRIM (Verified Allergy, Unknown, 12/11/16) ROS Limited/Unobtainable: No Constitutional: Reports: no symptoms HEENT: Reports: no symptoms Subjective 61 YO F admitted with shortness of breath. Cover for Int Med-Dr Sarmiento. See speech therapy note concerning need for Trach change-patient requests transfer to [facility] for Dr Campbell Nielsen to perform trach change Objective Last Vital Signs Date Time Temp Pulse Resp B/P Pulse Ox O2 Delivery O2 Flow Rate FiO2 12/15/16 16:00 97.9 88 18 151/88 94 Room Air 12/15/16 14:48 10.0 30 Laboratory Tests Test 12/14/16 23:10 12/15/16 07:15 Random Vancomycin Level 12.1 ug/mL White Blood Count 6.4 K/UL (4.8-10.8) Red Blood Count 3.81 M/UL (4.20-5.40) L Hemoglobin 8.9 G/DL (12.0-16.0) L Hematocrit 29.5 % (37.0-47.0) L Mean Corpuscular Volume 78 FL (80-99) L Mean Corpuscular Hemoglobin 23.5 PG (27.0-31.0) L Mean Corpuscular Hemoglobin Concent 30.3 G/DL (32.0-36.0) L Red Cell Distribution Width 19.4 % (11.6-14.8) H Platelet Count 361 K/UL (150-450) Mean Platelet Volume 6.1 FL (6.5-10.1) L Neutrophils (%) (Auto) 76.9 % (45.0-75.0) H Lymphocytes (%) (Auto) 12.4 % (20.0-45.0) L Monocytes (%) (Auto) 10.0 % (1.0-10.0) Eosinophils (%) (Auto) 0.3 % (0.0-3.0) Basophils (%) (Auto) 0.4 % (0.0-2.0) Sodium Level 136 mEQ/L (135-145) Potassium Level 3.6 mEQ/L (3.4-4.9) Chloride Level 95 mEQ/L (98-107) L Carbon Dioxide Level 29 mEQ/L (20-30) Anion Gap 12 (5-15) Blood Urea Nitrogen 7 mg/dL (7-23) Creatinine 0.6 mg/dL (0.5-0.9) Estimat Glomerular Filtration Rate > 60 mL/min (>60) Glucose Level 109 mg/dL (74-106) H Calcium Level 8.8 mg/dL (8.6-10.2) Intake and Output 12/14/16 12/15/16 19:00 07:00 Intake Total 533.7 ml 570.0 ml Balance 533.7 ml 570.0 ml Intake Oral 240 ml IV Total 293.7 ml 570.0 ml # Voids 2 1 Objective General Appearance: WD/WN, no apparent distress, alert EENT: PERRL/EOMI, normal ENT inspection, TMs normal Neck: non-tender, normal alignment, supple, other - trach Cardiovascular: normal peripheral pulses, normal rate, regular rhythm, no gallop/murmur, no JVD Respiratory/Chest: Trach; chest wall non-tender, crackles/rales, rhonchi - bilaterally, expiratory wheezing, other - trach Abdomen: normal bowel sounds, non tender, soft, no organomegaly, no mass Extremities: normal range of motion Edema: trace edema Neurologic: drawer in stitch bonding machine II-XII grossly normal, no motor/sensory deficits Assessment/Plan Problem List: (1) HTN (hypertension) Assessment & Plan: Cont coreg (2) Hypothyroidism Assessment & Plan: Cont levoxyl (3) Cancer of breast (4) Pneumonia Assessment & Plan: See pulmonary note. Cont vanco and zosyn (5) Shortness of breath (6) Metastatic adenocarcinoma (7) Tracheostomy in place Assessment & Plan: See speech therapy note concerning change trach to Portex 6 or downsize. Attempt to get name of physician who placed the trach at [facility] from patient daughter, Brandy this afternoon. (8) Diabetes Assessment & Plan: cont novolog sliding scale. (9) Anemia (10) Iron deficiency Assessment & Plan: On IV venofer. Status: unchanged Assessment/Plan Discharge planning: Await transfer to [facility] for trach downsizing. PRABHU FINNEY Dec 15, 2016 17:40
[2016-12-15 20:00] VITALS: BP 153/87
[2016-12-15] MEDS: Iron Sucrose 100 MG in NS 110 ML IVPB SCH (22:06)
[2016-12-16] VITALS (10 sets, daily range): BP systolic 127–173; BP diastolic 68–85
[2016-12-16] MEDS: Vancomycin 1.25 GM in D5W 275 ML IVPB SCH ×2 (00:05→14:14)
[2016-12-16] MEDS: Piperacillin/Tazobactam 3.375 GM in D5W 110 ML IVPB SCH ×3 (02:23→17:58)
[2016-12-16] MEDS: Morphine Sulfate 2mg/ml Inj IVP PRN ×2 (03:16→16:00)
[2016-12-16] MEDS: NovoLOG Insulin Flexpen SUBQ SCH ×3 (06:30→18:00)
[2016-12-16 07:38] LABS: BASOPHILS % (AUTO) 0.3 % (0.0-2.0); EOSINOPHILS % (AUTO) 0.3 % (0.0-3.0); LYMPHOCYTES % (AUTO) 13.2 % (20.0-45.0); MEAN CORPUSCULAR HEMOGLOBIN 23.9 PG (27.0-31.0); MEAN CORPUSCULAR HGB CONC 30.9 G/DL (32.0-36.0); MEAN CORPUSCULAR VOLUME 77 FL (80-99); MEAN PLATELET VOLUME 5.7 FL (6.5-10.1); MONOCYTES % (AUTO) 12.6 % (1.0-10.0); NEUTROPHILS % (AUTO) 73.6 % (45.0-75.0); PLATELET COUNT 327 K/UL (150-450); RED BLOOD COUNT 3.79 M/UL (4.20-5.40); RED CELL DISTRIBUTION WIDTH 19.4 % (11.6-14.8); WHITE BLOOD COUNT 7.2 K/UL (4.8-10.8)
[2016-12-16 08:10] LABS: ANION GAP 14 (5-15); CALCIUM 9.1 mg/dL (8.6-10.2); CARBON DIOXIDE 28 mEQ/L (20-30); CHLORIDE 96 mEQ/L (98-107); CREATININE 0.6 mg/dL (0.5-0.9); GLOMERULAR FILTRATION RATE > 60 mL/min (>60); HEMOLYSIS 3; POTASSIUM 3.3 mEQ/L (3.4-4.9); SODIUM 138 mEQ/L (135-145)
[2016-12-16] MEDS: DuoNeb 0.5-3(2.5)mg/3ml neb HHN SCH ×3 (08:46→19:32)
[2016-12-16] MEDS: Lyrica 50mg cap ORAL SCH ×2 (09:00→18:00)
[2016-12-16] MEDS: Carvedilol 6.25mg Tab ORAL SCH ×2 (09:18→17:57)
[2016-12-16] MEDS: MS Contin 15mg tab ORAL SCH (09:18)
[2016-12-16] MEDS: chlorproMAZINE 10mg tab ORAL SCH ×2 (09:18→18:00)
--- NOTE | 2016-12-16 14:20 | Infectious Diseases Prog Note ---
Assessment/Plan Assessment/Plan ASSESSMENT: 61 y/o female with: // Possible HCAP - SCx NRF - CXR 12/12: Pulmonary bibasal subsegmental atelectasis and/or pneumonias. Nonspecific bilateral interstitial prominence, may relate to technique. Acute or chronic interstitial infiltrates not excludable, repeat pending // Afebrile without leukocytosis ( on steroids ) // Acute on chronic respiratory failure / trach collar - SP trach change, bronch @ [place], reportedly no mucous plugging - mediastinal, lung mets, malignant pleural effusion // Recurrent metastatic breast CA SP chemo, XRT // Elevated CEA // Bactrim allergy // Full Code PLAN: - continue IV vancomycin, zosyn d# 6 / 7. Ok to complete course with PO levaquin at discharge - taper steroids per pulm - monitor CBC, temperatures, re-culture if acute change - monitor BMP - monitor CXR - f/u repeat - respiratory support - possible transfer to [facility] Subjective Allergies: Coded Allergies: ONDANSETRON (Verified Allergy, Unknown, 12/12/16) SULFAMETHOXAZOLE (Verified Allergy, Unknown, 12/11/16) TRIMETHOPRIM (Verified Allergy, Unknown, 12/11/16) Subjective remains afebrile. c/o SOB Objective Vital Signs Last 24 Hour Vital Signs Date Time Temp Pulse Resp B/P Pulse Ox O2 Delivery O2 Flow Rate FiO2 12/16/16 12:08 97.0 84 18 127/68 96 Trach Collar 12/16/16 12:00 86 12/16/16 10:18 20 95 Trach Collar 3.0 12/16/16 10:17 97.0 12/16/16 10:00 86 18 146/79 88 Room Air 12/16/16 09:18 80 163/84 12/16/16 08:56 89 16 97 Trach Collar 3.0 30 12/16/16 08:46 97 Trach Collar 3.0 30 12/16/16 08:46 89 16 97 Trach Collar 3.0 30 12/16/16 08:46 Trach Collar 3.0 30 12/16/16 08:30 97.0 80 18 163/84 96 Trach Collar 12/16/16 08:00 90 12/16/16 06:30 145/75 12/16/16 04:10 145/85 98 Trach Collar 12/16/16 04:04 97.9 88 18 173/82 94 Trach Collar 12/16/16 04:00 84 12/16/16 00:18 97.3 78 19 137/68 100 Trach Collar 12/16/16 00:00 95 12/15/16 23:05 83 16 100 Trach Collar 10.0 30 12/15/16 22:41 82 16 100 Trach Collar 10.0 30 12/15/16 20:00 85 12/15/16 20:00 97.9 89 20 153/87 100 Room Air 12/15/16 18:46 Trach Collar 8.0 30 12/15/16 18:45 98 Trach Collar 10.0 30 12/15/16 17:40 88 151/88 12/15/16 16:00 97.9 88 18 151/88 94 Room Air 12/15/16 16:00 87 12/15/16 14:48 85 16 100 Trach Collar 10.0 30 12/15/16 14:38 85 16 100 Trach Collar 10.0 30 Height (Feet): 5 Height (Inches): 3.00 Weight (Pounds): 134 General Appearance: no acute distress HEENT: status post trach Respiratory/Chest: decreased breath sounds Cardiovascular: normal rate, regular rhythm Abdomen: normal bowel sounds, soft, non tender, non distended Laboratory Tests Test 12/16/16 05:25 White Blood Count 7.2 K/UL (4.8-10.8) Red Blood Count 3.79 M/UL (4.20-5.40) L Hemoglobin 9.0 G/DL (12.0-16.0) L Hematocrit 29.3 % (37.0-47.0) L Mean Corpuscular Volume 77 FL (80-99) L Mean Corpuscular Hemoglobin 23.9 PG (27.0-31.0) L Mean Corpuscular Hemoglobin Concent 30.9 G/DL (32.0-36.0) L Red Cell Distribution Width 19.4 % (11.6-14.8) H Platelet Count 327 K/UL (150-450) Mean Platelet Volume 5.7 FL (6.5-10.1) L Neutrophils (%) (Auto) 73.6 % (45.0-75.0) Lymphocytes (%) (Auto) 13.2 % (20.0-45.0) L Monocytes (%) (Auto) 12.6 % (1.0-10.0) H Eosinophils (%) (Auto) 0.3 % (0.0-3.0) Basophils (%) (Auto) 0.3 % (0.0-2.0) Sodium Level 138 mEQ/L (135-145) Potassium Level 3.3 mEQ/L (3.4-4.9) L Chloride Level 96 mEQ/L (98-107) L Carbon Dioxide Level 28 mEQ/L (20-30) Anion Gap 14 (5-15) Blood Urea Nitrogen 8 mg/dL (7-23) Creatinine 0.6 mg/dL (0.5-0.9) Estimat Glomerular Filtration Rate > 60 mL/min (>60) Glucose Level 131 mg/dL (74-106) H Calcium Level 9.1 mg/dL (8.6-10.2) Current Medications Medications (Trade) Dose Ordered Sig/Trung Route PRN Reason Start Time Stop Time Status Last Admin Dose Admin Acetaminophen (Tylenol) 650 mg Q4H PRN ORAL fever 12/11/16 18:00 01/10/17 17:59 Albuterol/ Ipratropium (DuoNeb 0.5-3(2.5)mg/3ml) 3 ml Q4HR PRN HHN Shortness of Breath 12/11/16 18:00 12/16/16 17:59 12/14/16 03:46 Albuterol/ Ipratropium (DuoNeb 0.5-3(2.5)mg/3ml) 3 ml Q8HR HHN 12/11/16 22:00 12/16/16 21:59 12/16/16 08:46 Atorvastatin Calcium (Lipitor) 10 mg BEDTIME ORAL 12/11/16 21:30 01/10/17 21:29 12/15/16 22:07 Carvedilol (Coreg) 6.25 mg BID ORAL 12/12/16 09:00 01/11/17 08:59 12/16/16 09:18 Chlorpromazine (Thorazine) 10 mg BID ORAL 12/12/16 09:00 01/11/17 08:59 12/16/16 09:18 Clonidine HCl (Catapres) 0.1 mg Q4H PRN ORAL For High Blood Pressure 12/11/16 18:15 01/10/17 18:14 Dexamethasone (Decadron) 4 mg DAILY ORAL 12/12/16 09:00 01/11/17 08:59 12/16/16 09:23 Dextrose (Dextrose 50%) STAT PRN IV Hypoglycemia 12/11/16 18:00 01/10/17 17:59 Diphenhydramine HCl (Benadryl) 50 mg Q12HR PRN ORAL Itching/Pruritis 12/11/16 18:00 01/10/17 17:59 Furosemide (Lasix) 20 mg DAILY ORAL 12/12/16 09:00 01/11/17 08:59 12/16/16 09:18 Insulin Aspart (NovoLOG) BEFORE MEALS AND HS SUBQ 12/11/16 21:00 01/10/17 20:59 12/16/16 11:56 Iron Sucrose 100 mg/Sodium Chloride 115 ml @ 460 mls/hr BEDTIME IVPB 12/13/16 21:00 12/17/16 21:14 12/15/16 22:06 Levothyroxine Sodium (Synthroid) 112 mcg DAILY@0630 ORAL 12/12/16 06:30 01/11/17 06:29 12/16/16 06:02 Morphine Sulfate (MS Contin) 15 mg Q12HR ORAL 12/12/16 09:00 12/19/16 08:59 12/16/16 09:18 Morphine Sulfate (Morphine Sulfate) 2 mg Q4H PRN IVP for mild - moderate pain 12/11/16 22:15 12/18/16 22:14 12/16/16 03:16 Morphine Sulfate 4 mg 4 mg Q4H PRN IVP Severe Pain (Pain Scale 7-10) 12/11/16 22:15 12/18/16 22:14 Oxycodone HCl (Roxicodone) 15 mg Q4H PRN ORAL Breakthrough Pain 12/11/16 22:15 12/18/16 22:14 Pantoprazole (Protonix) 40 mg DAILY ORAL 12/12/16 09:00 01/11/17 08:59 12/16/16 09:18 Piperacillin Sod/ Tazobactam Sod/ Dextrose (Zosyn/D5W 100ml) 110 ml @ 27.5 mls/hr Q8H IVPB 12/12/16 01:00 12/19/16 00:59 12/16/16 09:30 Pregabalin (Lyrica) 100 mg BID ORAL 12/12/16 09:00 01/11/17 08:59 Prochlorperazine (Compazine) 10 mg TID PRN ORAL Nausea & Vomiting 12/11/16 18:30 01/10/17 18:29 12/14/16 22:03 Promethazine HCl/ Codeine 5 ml 5 ml Q4H PRN ORAL For Cough 12/12/16 12:30 01/11/17 12:29 Sumatriptan Succinate (Imitrex) 100 mg DAILY PRN ORAL For Pain 12/11/16 18:30 01/10/17 18:29 12/15/16 20:19 Temazepam (Restoril) 15 mg QHS PRN ORAL Insomnia 12/11/16 18:00 12/18/16 17:59 12/15/16 22:14 Vancomycin HCl (Vanco rx to dose) 1 ea DAILY PRN MISC Per rx protocol 12/11/16 18:15 01/10/17 18:14 Vancomycin HCl/ Dextrose (Vancomycin/D5W) 275 ml @ 183.708 mls/hr Q12HR@0000,1200 IVPB 12/16/16 00:00 12/21/16 00:00 12/16/16 14:14 BRI GILMORE Dec 16, 2016 14:20
--- NOTE | 2016-12-16 14:33 | Pulmonology Progress Note ---
Assessment/Plan Problems: (1) Status post tracheostomy (2) Hypoxemia (3) Pneumonia (4) Diabetes (5) Metastatic adenocarcinoma (6) Anemia (7) Iron deficiency Assessment/Plan improving on oral abx swallow study noted. MRASA nares sliding scale, insulin coverage med/surg dc plannign with home oxygen and oral antibiotics Subjective ROS Limited/Unobtainable: No Interval Events: improving Constitutional: Reports: no symptoms Allergies: Coded Allergies: ONDANSETRON (Verified Allergy, Unknown, 12/12/16) SULFAMETHOXAZOLE (Verified Allergy, Unknown, 12/11/16) TRIMETHOPRIM (Verified Allergy, Unknown, 12/11/16) Objective Last 24 Hour Vital Signs Date Time Temp Pulse Resp B/P Pulse Ox O2 Delivery O2 Flow Rate FiO2 12/16/16 12:08 97.0 84 18 127/68 96 Trach Collar 12/16/16 12:00 86 12/16/16 10:18 20 95 Trach Collar 3.0 12/16/16 10:17 97.0 12/16/16 10:00 86 18 146/79 88 Room Air 12/16/16 09:18 80 163/84 12/16/16 08:56 89 16 97 Trach Collar 3.0 30 12/16/16 08:46 97 Trach Collar 3.0 30 12/16/16 08:46 89 16 97 Trach Collar 3.0 30 12/16/16 08:46 Trach Collar 3.0 30 12/16/16 08:30 97.0 80 18 163/84 96 Trach Collar 12/16/16 08:00 90 12/16/16 06:30 145/75 12/16/16 04:10 145/85 98 Trach Collar 12/16/16 04:04 97.9 88 18 173/82 94 Trach Collar 12/16/16 04:00 84 12/16/16 00:18 97.3 78 19 137/68 100 Trach Collar 12/16/16 00:00 95 12/15/16 23:05 83 16 100 Trach Collar 10.0 30 12/15/16 22:41 82 16 100 Trach Collar 10.0 30 12/15/16 20:00 85 12/15/16 20:00 97.9 89 20 153/87 100 Room Air 12/15/16 18:46 Trach Collar 8.0 30 12/15/16 18:45 98 Trach Collar 10.0 30 12/15/16 17:40 88 151/88 12/15/16 16:00 97.9 88 18 151/88 94 Room Air 12/15/16 16:00 87 12/15/16 14:48 85 16 100 Trach Collar 10.0 30 12/15/16 14:38 85 16 100 Trach Collar 10.0 30 Intake and Output 12/15/16 12/16/16 19:00 07:00 Intake Total 744.9 ml 927.5 ml Balance 744.9 ml 927.5 ml Intake Oral 240 ml IV Total 504.9 ml 927.5 ml # Voids 2 3 # Bowel Movements 1 General Appearance: WD/WN HEENT: normocephalic, atraumatic Respiratory/Chest: chest wall non-tender, lungs clear Breasts: no masses Cardiovascular: normal rate Abdomen: normal bowel sounds, soft, non tender Laboratory Tests 12/16/16 05:25: White Blood Count 7.2, Red Blood Count 3.79L, Hemoglobin 9.0L, Hematocrit 29.3L , Mean Corpuscular Volume 77L, Mean Corpuscular Hemoglobin 23.9L, Mean Corpuscular Hemoglobin Concent 30.9L, Red Cell Distribution Width 19.4H, Platelet Count 327, Mean Platelet Volume 5.7L, Neutrophils (%) (Auto) 73.6, Lymphocytes (%) (Auto) 13.2L, Monocytes (%) (Auto) 12.6H, Eosinophils (%) (Auto ) 0.3, Basophils (%) (Auto) 0.3, Sodium Level 138, Potassium Level 3.3L, Chloride Level 96L, Carbon Dioxide Level 28, Anion Gap 14, Blood Urea Nitrogen 8 , Creatinine 0.6, Estimat Glomerular Filtration Rate > 60, Glucose Level 131H, Calcium Level 9.1 Current Medications Medications (Trade) Dose Ordered Sig/Trung Route PRN Reason Start Time Stop Time Status Last Admin Dose Admin Acetaminophen (Tylenol) 650 mg Q4H PRN ORAL fever 12/11/16 18:00 01/10/17 17:59 Albuterol/ Ipratropium (DuoNeb 0.5-3(2.5)mg/3ml) 3 ml Q4HR PRN HHN Shortness of Breath 12/11/16 18:00 12/16/16 17:59 12/14/16 03:46 Albuterol/ Ipratropium (DuoNeb 0.5-3(2.5)mg/3ml) 3 ml Q8HR HHN 12/11/16 22:00 12/16/16 21:59 12/16/16 08:46 Atorvastatin Calcium (Lipitor) 10 mg BEDTIME ORAL 12/11/16 21:30 01/10/17 21:29 12/15/16 22:07 Carvedilol (Coreg) 6.25 mg BID ORAL 12/12/16 09:00 01/11/17 08:59 12/16/16 09:18 Chlorpromazine (Thorazine) 10 mg BID ORAL 12/12/16 09:00 01/11/17 08:59 12/16/16 09:18 Clonidine HCl (Catapres) 0.1 mg Q4H PRN ORAL For High Blood Pressure 12/11/16 18:15 01/10/17 18:14 Dexamethasone (Decadron) 4 mg DAILY ORAL 12/12/16 09:00 01/11/17 08:59 12/16/16 09:23 Dextrose (Dextrose 50%) STAT PRN IV Hypoglycemia 12/11/16 18:00 01/10/17 17:59 Diphenhydramine HCl (Benadryl) 50 mg Q12HR PRN ORAL Itching/Pruritis 12/11/16 18:00 01/10/17 17:59 Furosemide (Lasix) 20 mg DAILY ORAL 12/12/16 09:00 01/11/17 08:59 12/16/16 09:18 Insulin Aspart (NovoLOG) BEFORE MEALS AND HS SUBQ 12/11/16 21:00 01/10/17 20:59 12/16/16 11:56 Iron Sucrose 100 mg/Sodium Chloride 115 ml @ 460 mls/hr BEDTIME IVPB 12/13/16 21:00 12/17/16 21:14 12/15/16 22:06 Levothyroxine Sodium (Synthroid) 112 mcg DAILY@0630 ORAL 12/12/16 06:30 01/11/17 06:29 12/16/16 06:02 Morphine Sulfate (MS Contin) 15 mg Q12HR ORAL 12/12/16 09:00 12/19/16 08:59 12/16/16 09:18 Morphine Sulfate (Morphine Sulfate) 2 mg Q4H PRN IVP for mild - moderate pain 12/11/16 22:15 12/18/16 22:14 12/16/16 03:16 Morphine Sulfate 4 mg 4 mg Q4H PRN IVP Severe Pain (Pain Scale 7-10) 12/11/16 22:15 12/18/16 22:14 Oxycodone HCl (Roxicodone) 15 mg Q4H PRN ORAL Breakthrough Pain 12/11/16 22:15 12/18/16 22:14 Pantoprazole (Protonix) 40 mg DAILY ORAL 12/12/16 09:00 01/11/17 08:59 12/16/16 09:18 Piperacillin Sod/ Tazobactam Sod/ Dextrose (Zosyn/D5W 100ml) 110 ml @ 27.5 mls/hr Q8H IVPB 12/12/16 01:00 12/19/16 00:59 12/16/16 09:30 Pregabalin (Lyrica) 100 mg BID ORAL 12/12/16 09:00 01/11/17 08:59 Prochlorperazine (Compazine) 10 mg TID PRN ORAL Nausea & Vomiting 12/11/16 18:30 01/10/17 18:29 12/14/16 22:03 Promethazine HCl/ Codeine 5 ml 5 ml Q4H PRN ORAL For Cough 12/12/16 12:30 01/11/17 12:29 Sumatriptan Succinate (Imitrex) 100 mg DAILY PRN ORAL For Pain 12/11/16 18:30 01/10/17 18:29 12/15/16 20:19 Temazepam (Restoril) 15 mg QHS PRN ORAL Insomnia 12/11/16 18:00 12/18/16 17:59 12/15/16 22:14 Vancomycin HCl (Vanco rx to dose) 1 ea DAILY PRN MISC Per rx protocol 12/11/16 18:15 01/10/17 18:14 Vancomycin HCl/ Dextrose (Vancomycin/D5W) 275 ml @ 183.708 mls/hr Q12HR@0000,1200 IVPB 12/16/16 00:00 12/21/16 00:00 12/16/16 14:14 KAYLA ESPINOZA Dec 16, 2016 14:33
--- NOTE | 2016-12-16 14:33 | Discharge Summary ---
Discharge Summary Hospital Course Date of Admission Dec 11, 2016 at 16:26 Date of Discharge Admitting Diagnosis OCTAVIO Guido is a 61 year old female who was admitted on Dec 11, 2016 at 16:26 for Shortness Of Breath Hospital Course The patient was seen and examined at bedside and all new and available data was reviewed in the patients chart. Last 24 Hour Vital Signs Date Time Temp Pulse Resp B/P Pulse Ox O2 Delivery O2 Flow Rate FiO2 12/16/16 12:08 97.0 84 18 127/68 96 Trach Collar 12/16/16 12:00 86 12/16/16 10:18 20 95 Trach Collar 3.0 12/16/16 10:17 97.0 12/16/16 10:00 86 18 146/79 88 Room Air 12/16/16 09:18 80 163/84 12/16/16 08:56 89 16 97 Trach Collar 3.0 30 12/16/16 08:46 97 Trach Collar 3.0 30 12/16/16 08:46 89 16 97 Trach Collar 3.0 30 12/16/16 08:46 Trach Collar 3.0 30 12/16/16 08:30 97.0 80 18 163/84 96 Trach Collar 12/16/16 08:00 90 12/16/16 06:30 145/75 12/16/16 04:10 145/85 98 Trach Collar 12/16/16 04:04 97.9 88 18 173/82 94 Trach Collar 12/16/16 04:00 84 12/16/16 00:18 97.3 78 19 137/68 100 Trach Collar 12/16/16 00:00 95 12/15/16 23:05 83 16 100 Trach Collar 10.0 30 12/15/16 22:41 82 16 100 Trach Collar 10.0 30 12/15/16 20:00 85 12/15/16 20:00 97.9 89 20 153/87 100 Room Air 12/15/16 18:46 Trach Collar 8.0 30 12/15/16 18:45 98 Trach Collar 10.0 30 12/15/16 17:40 88 151/88 12/15/16 16:00 97.9 88 18 151/88 94 Room Air 12/15/16 16:00 87 12/15/16 14:48 85 16 100 Trach Collar 10.0 30 12/15/16 14:38 85 16 100 Trach Collar 10.0 30 GENERAL: The patient is well-developed and well-nourished female, in no apparent distress. HEENT: Eyes, pupils are equal and responsive to light and accommodation. Extraocular movements are intact. NECK: Supple without lymphadenopathy. CHEST: Trach collar in place. Few diffuse rales in bilateral bases CARDIOVASCULAR: S1, S2 RR. No murmurs ABDOMEN: Soft, nontender, and nondistended. Positive bowel sounds. EXTREMITIES: Negative for clubbing, cyanosis, or edema. RECTAL: Refused. GENITAL: Refused. NEUROLOGIC: Cranial nerves II through XII are grossly intact without focal deficits. Motor strength is 5/5 bilaterally. Plan: Dc home today (Patient was seen earlier today. Signature timestamp does not reflect patient encounter time) Ranjeet Sarmiento MD Discharge Discharge Disposition Patient was discharged to Discharge Diagnoses: Ranjeet Sarmiento MD Dec 16, 2016 14:33
[2016-12-16] MEDS: SUMAtriptan 100mg tab ORAL PRN (17:59)
[2016-12-16] MEDS ORDERED: Lomotil 2.5mg tab ORAL ONE (19:30)
--- NOTE | 2016-12-17 05:47 | Discharge Summary ---
DATE OF ADMISSION: 12/11/2016 DATE OF DISCHARGE: 12/16/2016 HISTORY AND HOSPITAL COURSE: This is a 61-year-old female with past medical history significant for metastatic breast cancer and status post a tracheostomy, presently off the vent, on a tracheostomy tube with a history of metastasis to the brain, status post craniotomy, hypertension, and hypothyroidism, who was presented to the hospital initially from [facility] after complaining about shortness of breath. Shortly after initial evaluation, the patient was transferred to the [facility] for treatment, possible aspiration pneumonia. Throughout the hospital course, the patient was consulted with Dr. Hernandez from [facility] and Dr. Weston from [place]. The patient had been treated initially with vancomycin and Zosyn for 6/7 days of intravenous antibiotic and subsequently was discharged home on Levaquin to follow up with Dr. Hernandez as outpatient for Hematology/Oncology. FINAL DIAGNOSES: 1. Acute and chronic respiratory failure, status post tracheostomy, on a trach collar. 2. Recurrent metastatic breast cancer, status post chemotherapy and radiation therapy with metastasis to the brain. 3. Elevated CEA. 4. Bactrim allergy. 5. Hypothyroidism. 6. Hypertension. MEDICATION ON DISCHARGE: Continue discharge medication list. ACTIVITY: As tolerated. DIET: Cardiac diet. FOLLOWUP: Advised the patient to follow up with Dr. Hernandez within one week. Ranjeet Sarmiento M.D. DR: DOC JOB#: [id number] CC:
--- NOTE | 2016-12-18 09:39 | Diagnostic Imaging Report ---
Indication: Dyspnea Comparison: 12/12/16 A single view chest radiograph was obtained. Findings: Dense left basilar consolidation versus atelectasis demonstrated. Heart size is borderline enlarged. Pulmonary vascularity is within normal limits. Tracheostomy, left chest port again noted. Surgical clips in the right axilla noted. Abnormal sclerosis of the humeral heads present bilaterally. Generalized osteopenia is noted. Impression: No significant change compared to the previous examination. Pneumonia may be present at the left lung base. Please correlate clinically
== END 2016-12-16 20:40 | disposition home health service (06) | DRG 177 ==
LOC: UNDOADMIN 16:26 → 2E 16:26
DX: J69.0 Pneumonitis due to inhalation of food and vomit (principal); J96.21 Acute and chronic respiratory failure with hypoxia; C78.1 Secondary malignant neoplasm of mediastinum; C79.51 Secondary malignant neoplasm of bone; C78.00 Secondary malignant neoplasm of unspecified lung; E61.1 Iron deficiency; C50.919 Malignant neoplasm of unspecified site of unspecified female breast; I10 Essential (primary) hypertension; E03.9 Hypothyroidism, unspecified; Z43.0 Encounter for attention to tracheostomy; Z79.899 Other long term (current) drug therapy; Z88.2 Allergy status to sulfonamides; E11.9 Type 2 diabetes mellitus without complications; Z22.322 Carrier or suspected carrier of Methicillin resistant Staphylococcus aureus; Z88.8 Allergy status to other drugs, medicaments and biological substances; Z88.3 Allergy status to other anti-infective agents; D64.9 Anemia, unspecified
CPT/HCPCS: 36415; 71010; 74230; 80048; 80053; 80202; 82378; 82607; 82746; 82962; 83540; 83550; 83615; 83735; 84100; 85007; 85025; 85044; 85060; 85610; 85651; 85730; 87070; 87081; 87205; 94640; 94760; J1815; J7620; J8499